=== PATIENT | female | born 1975 | race Caucasian/White ===

== ENCOUNTER 2019-01-18 08:14 | Emergency (ER) | payer BC, SELFPAY ==
[2019-01-18 08:15] VITALS: BP 155/74; PULSE 75; RESP 18; TEMP 36.3; O2SAT 95; BMI 37.5
--- NOTE | 2019-01-18 08:24 | ED.VIS.GEN ---
History of Present Illness Chief Complaint: Nausea/Vomiting/Diarrhea Detail of Chief Complaint: Nausea without vomiting and diarrhea Informant: Patient Onset: Days - Onset January 13. Context: Sudden Onset Timing: Continuous - Nausea, Intermittent - Diarrhea Quality: Watery diarrhea 5 times per day Location: GI Current Severity: Moderate Maximum Severity: Moderate Worsened by: Playing tennis outdoors this past Relieved by: Nothing Associated Symptoms: Headache, thirst, lightheadedness Narrative: Patient is a 43-year-old woman with no sniffing a past medical history who presents with nausea and diarrhea that started Friday. Son was ill prior with diarrhea. She denies fever or chills. She denies history of pseudomembranous colitis, diverticulitis or inflammatory bowel disorder. She denies blood or mucus in her stool. She feels worn out. Patient states she played tennis this past weekend. She believes she drank enough fluids. She presents because she is concerned she is dehydrated does not feel well. Prior similar symptoms: No Recent Illness/Hospitalization: No - Past Medical History (1) No significant past medical history Status: Acute Past Medical History - Allergies and Home Meds Allergies/Adverse Reactions: Allergies codeine Allergy (Verified 01/18/19 08:15) Rash Primary Care Physician: Care Physician,No Primary [Primary Care Provider] - Prior records reviewed: Yes Past Medical History: None Surgical History: noncontributory Lives: With Family Smoking Status: Never smoker Alcohol: None Drugs: None Review of Systems General: Denies: Chills, Fever, Sweats Eyes: Denies: Visual changes - bilaterally, Diplopia ENT: Denies: Rhinorrhea, Sore throat Cardiovascular: Denies: Chest pain, Palpitations Respiratory: Denies: Dyspnea, Cough, Dyspnea on exertion Gastrointestinal: Reports: Abdominal pain, Nausea, Diarrhea. Denies: Vomiting, Constipation, Melena, Hematochezia, -, - Genitourinary: Reports: Frequency. Denies: Dysuria, Hematuria, -, - Musculoskeletal: Reports: Myalgias, Arthralgias. Denies: Neck pain, Back pain, Swelling, Extremity Pain, -, - Skin: Denies: Rash, Wounds Neurological: Reports: Headache, Weakness. Denies: Parasthesia, Numbness Endocrine: Reports: Polyuria. Denies: Polydipsia, Heat intolerance Hematologic: Denies: Easy bruising, Easy bleeding Allergy: Denies: Uticaria, Swelling of the mouth Physical Exam Vital Signs/Narrative: Vital Signs Temp Pulse Resp BP Pulse Ox 01/18/19 08:15 97.4 F L 75 18 155/74 H 95 Inital Vital Signs reviewed: Yes General: Well nourished, Well developed, No Acute Distress Head: Normocephalic, Atraumatic Eyes: Perrl, EOMI. Negative for: Pale conjunctiva, Scleral icterus ENT: No rhinorrhea, TM's clear, Dry mucous membranes Neck: Supple, Nontender, No lymphadenopathy, No JVD, - Cardiovascular: Regular rate, Regular rhythm, No murmurs, Normal S1, Normal S2 Respiratory: No distress, CTA bilaterally, Chest nontender Abdomen: Soft, Nontender, Nondistended, Normal bowel sounds, No masses Rectal: Deferred Back: Nontender, Normal Inspection Extremities: Nontender Skin: Normal color, No rash, No Trauma. Negative for: Cyanosis, Diaphoresis, Jaundice Neurological: Alert, Oriented x3, Cranial nerves II-XII grossly intact, Normal Strength, Normal Sensation Psychological: Normal affect Diagnostic/Tx/Re-eval Laboratory Results 01/18/19 08:30 Sodium 137 Potassium 3.8 Chloride 106 Carbon Dioxide 26.0 Anion Gap 5 BUN 9 Creatinine 0.92 Estim Creat Clear Calc 76.67 Est GFR (MDRD) Af Amer 85 Est GFR (MDRD) Non-Af 70 BUN/Creatinine Ratio 9.7 L Glucose 91 Calcium 8.0 L Electrolytes are unremarkable. Renal function is unremarkable. Potassium is normal. - Medical Decision Making Patient complains of thirst and dry mouth and orthostatic symptoms. Clinically she appears dehydrated. Patient reports frequency which raises concern for hyperglycemia. There is no family history of diabetes. Basic medical panel was obtained to assess glucose, renal function and electrolytes specifically potassium. She will receive 1 L of normal saline wide open and because her most significant symptom presently is nausea she received 4 mg Zofran IV push. Will reassess patient in 60 minutes. PO challenge was ordered. Patient complained of nausea. P.o. challenge was postponed. She received 10 mg of Reglan. Was informed she had a dystonic reaction, akathisia. This resolved with 1 mg of Cogentin IV push. She was reassessed at 1050. She states her nausea is resolved and her akathisia is resolved. Nurse was informed to p.o. challenge patient. I was informed at 1059 that patient passed p.o. challenge. She will be discharged home with antiemetic and instructed to take Imodium for diarrhea. ED Disposition - Plan for ED Patient: Disposition: Home or Assisted Living Diagnosis: Diarrhea, Nausea alone, Mild dehydration Instructions: VOMITING AND DIARRHEA, Nonspecific (Adult) Prescriptions: Ondansetron [Zofran Odt] 4 mg PO Q8H PRN PRN #10 tab PRN Reason: Nausea Prescription Printed Referrals: Care Physician,No Primary [Primary Care Provider] - Gume Jarvis MD [STAFF PHYSICIAN] - As Needed Additional Instructions: Since you do not have a primary care physician you were assigned to Dr. Gume Jarvis who is on-call for no doc.
[2019-01-18] MEDS: Ondansetron 4 MG/2 ML Vial IV (08:30)
[2019-01-18] MEDS: 0.9% Normal Saline 1,000 ML 1000 ML IV (08:30)
[2019-01-18 08:47] LABS: Anion Gap 5 (5-15); BUN 9 mg/dL (7-18); BUN/Creat Ratio 9.7 RATIO (10-20); Chloride 106 mmol/L (98-107); Creatinine, Serum 0.92 mg/dL (0.55-1.02); EST Glomerular Filtration Rate 70 mL/min (>60); Est Glom Filt Rate - Afr Amer 85 mL/min (>60); Estimated Creatinine Clearance 76.67 ml/min; Glucose 91 mg/dL (74-106); Potassium 3.8 mmol/L (3.5-5.1); Sodium Level 137 mmol/L (136-145)
[2019-01-18] MEDS: Metoclopramide 10 MG/2 ML Vial IV (10:00)
[2019-01-18 10:14] VITALS: BP 136/10; PULSE 69; RESP 16; O2SAT 95
== END 2019-01-18 11:12 | disposition home or self-care (01) ==
PROVIDERS: Emergency Provider Emergency Medicine
DX: R19.7 Diarrhea, unspecified (principal); R11.0 Nausea; E86.0 Dehydration; R10.9 Unspecified abdominal pain; R35.0 Frequency of micturition
CPT/HCPCS: 80048; 96361; 96374; 96375; 99283; J7030; A4216; J2405

== ENCOUNTER → 2019-02-18 17:12 | Outpatient (CLI) | payer BC, SELFPAY ==
[2019-02-18 20:53] LABS: Chlamydia Trachomatis by PCR Negative (Negative); Neisserai gonorrhoeae by PCR Negative (Negative); Probe Check PASS; Sample Adequacy Control PASS; Specimen Processing Control PASS
[2019-03-09 15:42] LABS: HPV Reflexed? NOT INDICATED
== END ==
PROVIDERS: Visit Provider Obstetrics & Gynecology
DX: Z12.4 Encounter for screening for malignant neoplasm of cervix (principal); Z11.3 Encounter for screening for infections with a predominantly sexual mode of transmission
CPT/HCPCS: 87491; 87591; 87624; 88175; G0145

== ENCOUNTER → 2019-02-25 15:38 | Outpatient (CLI) | payer BC, SELFPAY ==
--- NOTE | 2019-02-25 15:41 | BI_ITS ---
MAMMOGRAPHY - BILATERAL SCREENING REASON FOR EXAM: Female, 43 years old. Routine annual screening examination. PERTINENT HISTORY: Non-contributory. TECHNIQUE: Digital bilateral breast barbara (3D mammographic acquisition) in the CC and MLO projections. 2-D mediolateral oblique (MLO) and craniocaudad (CC) views of both breasts were obtained. CAD: Full Field Digital Mammography with Computer Added Detection was performed. COMPARISON: Comparison is made with prior study dated October 04, 2016 and March 14, 2010. FINDINGS: Breast Composition: The breasts are heterogeneously dense, which may obscure small masses. There are no dominant masses or suspicious calcifications. No other significant abnormalities are identified. There has been no significant change since the prior study. BI/SCREENING MAMM (CAD), BILAT IMPRESSION: Stable bilateral screening mammogram. Yearly follow-up mammogram recommended. (A) ASSESSMENT CATEGORY: BIRADS Category 1: Negative. A letter regarding these results will be sent to the patient by the facility within 30 days. Approximately 10% of breast cancers are not detected by mammography. A normal mammogram should not delay biopsy of a clinically suspicious abnormality. [id number] Electronically Signed: Dylan Nguyen, at 8:41 EDT , Service support ,
== END ==
PROVIDERS: Referring Provider Obstetrics & Gynecology; Visit Provider Obstetrics & Gynecology
DX: Z12.31 Encounter for screening mammogram for malignant neoplasm of breast (principal)
CPT/HCPCS: 77067

== ENCOUNTER 2019-03-22 07:54 | Emergency (ER) | payer BC, SELFPAY ==
[2019-03-22 07:56] VITALS: BP 169/90; PULSE 74; RESP 16; TEMP 36.7; O2SAT 97; BMI 39.2
--- NOTE | 2019-03-22 08:12 | ED.DCSUM_ITS ---
- ER Visit Summary Date of Service: 03/22/19 Chief Complaint: Left hand swelling and wheezing posterior horn extending History of Present Illness: The patient is a 44 F no significant past medical history. Patient was working outside yesterday and was stung by hornets on the dorsum of her left hand. She also had wheezing at that time. Bought some Benadryl and the wheezing resolved. But now has a swollen hand. No prior history. No trouble swallowing or breathing. Physical Examination: Well-appearing middle-aged female. Vital signs are stable and afebrile. She is in no distress. H EENT exam unremarkable. No swelling or trouble breathing. Posterior pharynx normal. No stridor. No drooling. Neck nontender. No lymphadenopathy. Lungs clear to auscultation bilaterally. Heart regular rate and rhythm no murmur. Abdomen is soft and nontender. Patient is moving all 4 extremities. Neurovascularly intact. Left hand is swollen consistent with a localized allergic reaction. This stinger is not present. Patient has swelling to the left hand dorsum primarily in distal left forearm. And is neurovascularly intact. There is no cellulitis. Test Results: None Emergency Department Course and Treatment: Patient has a localized allergic reaction to her left hand and forearm. It sounds like she started having a generalized reaction with the wheezing. She will be written for an EpiPen. She will continue to ice and elevate the left hand. Motrin for pain and swelling. Continue Benadryl. Treatment Plan: EpiPen to have swelling in case of a more severe reaction. Benadryl. Ice and elevate. Disposition: dc Impression: Localized allergic reaction to left hand secondary to hornet sting This note was generated with [employer] dictation software. It may contain incorrect words, spelling, and punctuation that were not noted in review of the chart prior to signing ED Disposition - Plan for ED Patient: Referrals: Care Physician,No Primary [Primary Care Provider] -
--- NOTE | 2019-03-22 08:15 | DCINST.ED_ITS ---
ED Disposition - Plan for ED Patient: Disposition: Home or Assisted Living Instructions: ALLERGIC REACTION, Insect (General) Prescriptions: Prednisone [Deltasone] 40 mg PO DAILY 7 Days tab Prescription Printed Epi Pen (for allergic rxn) 0.3 mg IM X1 #1 syringe Prescription Printed Referrals: Giorgi Wilson MD [STAFF PHYSICIAN] - As Needed Additional Instructions: Left hand to decrease the swelling. This will take several days for the swelling to go down. Benadryl as needed for itching and swelling. Motrin for pain and swelling. I wrote her a prescription for an EpiPen in case you have a severe reaction w here you have severe wheezing or throat or tongue or lip swelling after a bee sting. Prednisone also for allergic reactions.
[2019-03-22 08:33] VITALS: BP 123/74; PULSE 84; RESP 18
[2019-03-22 08:36] VITALS: BP 123/74; PULSE 84; RESP 18
== END 2019-03-22 08:43 | disposition home or self-care (01) ==
LOC: ED 08:22
PROVIDERS: Emergency Provider Emergency Medicine
DX: T63.451A Toxic effect of venom of hornets, accidental (unintentional), initial encounter (principal); M79.89 Other specified soft tissue disorders; Y92.9 Unspecified place or not applicable
CPT/HCPCS: 99282

== ENCOUNTER → 2020-06-08 15:02 | Outpatient (CLI) | payer BC, SELFPAY ==
--- NOTE | 2020-06-08 15:06 | BI_ITS ---
MAMMOGRAPHY - BILATERAL SCREENING REASON FOR EXAM: Female, 45 years old. Routine annual screening examination. PERTINENT HISTORY: Non-contributory. TECHNIQUE: Digital bilateral breast levon (3D mammographic acquisition) in the CC and MLO projections. 2-D mediolateral oblique (MLO) and craniocaudad (CC) views of both breasts were obtained. CAD: Full Field Digital Mammography with Computer Added Detection was performed. COMPARISON: Comparison is made with prior study 02/25/2019 and 10/04/2016. FINDINGS: Breast Composition: The breasts are heterogeneously dense, which may obscure small masses. There are no dominant masses or suspicious calcifications. No other significant abnormalities are identified. There has been no significant change since the prior study. BI/SCREEN MAMM (CAD) W/LEVON BILAT IMPRESSION: Stable bilateral screening mammogram. Yearly follow-up mammogram recommended. (A) ASSESSMENT CATEGORY: BIRADS Category 1: Negative. A letter regarding these results will be sent to the patient by the facility within 30 days. Approximately 10% of breast cancers are not detected by mammography. A normal mammogram should not delay biopsy of a clinically suspicious abnormality. [id number] Electronically Signed: Dylan Nguyen, at 15:58 EST , Service support ,
== END ==
PROVIDERS: Referring Provider Obstetrics & Gynecology; Visit Provider Obstetrics & Gynecology
DX: Z12.31 Encounter for screening mammogram for malignant neoplasm of breast (principal)
CPT/HCPCS: 77063; 77067

== ENCOUNTER 2021-05-28 02:01 | Emergency (ER) | payer BC, SELFPAY ==
[2021-05-28 02:02] VITALS: BP 153/81; PULSE 85; RESP 18; TEMP 36.9; O2SAT 95; BMI 41.0
[2021-05-28 02:04] VITALS: BP 153/81; PULSE 85; RESP 18; TEMP 36.9; O2SAT 95
--- NOTE | 2021-05-28 02:16 | EX.ED.VIS.UR ---
HPI HPI - URI History of Present Illness Chief Complaint: Shortness of Breath Informant: patient Onset/Context/Timing Onset: Days (7) Context: Gradual Onset Timing: Continuous Quality: [employer] cough Current Severity: Moderate Maximum Severity: Moderate Worsened by: - (coughing) Relieved by: - (nothing) Associated Symptoms Associated Symptoms: Positive for Headache, Myalgias, Nausea, Diarrhea, Shortness of Breath (when can't stop coughing) and Nonproductive cough; Negative for Nasal Congestion, Sinus Pressure, Vomiting, Chest Pain and Hemoptysis Narrative Narrative: Patient has been gradually becoming more ill for the past week, fevers, chills, myalgias, coughing, now feeling a little short of breath mostly because she is coughing more and having some episodes of bronchospasm from what she describes. She has been malaise, having headaches, nausea and diarrhea. Eating and drinking less because of the nausea mostly. Unvaccinated against Covid. She thinks that she thought she had Covid 2 years ago [place] which would be right before the pandemic started, when there were no confirmed cases in [place], she states she has never had any antibody testing to see if she had it or not. She is against Covid vaccination because I am against . ROS ROS ED Constitutional Constitutional ED: Reports body ache(s), chills, fatigue, fever(s), headache(s) and malaise Eyes Eyes: Denies change in vision or diplopia ENT ENT ED: Denies rhinorrhea or sore throat Cardiovascular Cardiovascular: Denies chest pain or palpitations Respiratory/Chest Respiratory/Chest: Reports as per HPI, cough and dyspnea Gastrointestinal Gastrointestinal: Reports diarrhea and nausea; Denies abdominal pain or vomiting Genitourinary Genitourinary ED: Denies dysuria or hematuria Musculoskeletal Musculoskeletal: Denies back pain or neck pain Integumentary Denies abscess or rash Neurologic Neurologic: Reports headache(s); Denies paresthesias or weakness Psychiatric Psychiatric: Denies anxiety or suicidal thoughts [facility] Medical History delivery delivered Home Medications norgestimate-ethinyl estradiol 1 tab PO DAILY 01/18/19 [History Last Taken Unknown] ascorbate [id number] 1 tab PO DAILY 05/28/21 [History Last Taken Unknown] ascorbic acid (vitamin C) [Vitamin C] 500 mg PO DAILY 05/28/21 [History Last Taken Unknown] cholecalciferol (vitamin D3) [Vitamin D3] 50 mcg PO DAILY 05/28/21 [History Last Taken Unknown] ondansetron 8 mg PO Q8H PRN PRN #12 tab 05/28/21 [Rx Last Taken Unknown] Allergy/AdvReac Type Severity Reaction Status Date / Time codeine Allergy Rash Verified 03/22/19 07:55 Surgical History H/O laminectomy Hx of tonsillectomy Social History Smoking Status: Never smoker EXAM Physical Exam Const Vital Signs: 05/28/21 02:02 05/28/21 02:04 Temperature 98.4 F 98.4 F Temperature Source Temporal Temporal Pulse Rate 85 85 Respiratory Rate 18 18 Blood Pressure 153/81 H 153/81 H Blood Pressure Mean 105 105 Pulse Ox 95 95 Oxygen Delivery Method Room Air Room Air Positive well nourished and well developed Constitutional Narrative: Malaised-appearing, no distress General Appearance ED: well developed and NAD HEENT Reports moist mucous membranes normocephalic and atraumatic Eyes PERRL and EOMs intact bilaterally Neck full ROM and supple Resp normal respiratory effort and clear to auscultation bilaterally Cardio regular rate, regular rhythm and no murmurs Rate: Negative for tachycardic GI non-tender and non-distended Auscultation: normoactive bowel sounds Palpation: soft Back/Spine no CVA tenderness General Back: other FROM Extremity normal to inspection and no calf tenderness General Extremety ED: Negative for edema, pulses abnormal or tenderness General Extremity: Negative for edema or pulses abnormal Neuro oriented x3, CN's II-XII intact bilaterally and no sensory deficits noted Sensorium / Orientation: awake and alert Motor Exam: strength 5/5 throughout Skin no rashes or lesions noted and no wounds MDM MDM MDM Narrative Medical decision making narrative: Rapid Covid is positive as expected since the patient has classic symptoms. She is clinically well. Her oxygenation is excellent. Given her BMI of 41 she meets criteria for monoclonal antibody infusion therapy, she was counseled on this and is interested in it. Order was placed and she was referred to the clinic and given appropriate discharge instructions. Discharge Plan Triage Chief Complaint: Shortness of Breath ED Provider: Michael Lion Dx/Rx/DC Orders Clinical Impression: COVID-19 Instructions: Coronavirus Disease 2019 (COVID-19): Caring for Yourself or Others, ED - COVID Monoclonal AB Infusion ... Prescriptions: New ondansetron [ondansetron] 4 MG tablet 8 mg PO Q8H PRN PRN (Reason: Nausea) Qty: 12 RF: 0 No Action norgestimate-ethinyl estradiol 0 tablet 1 tab PO DAILY RF: 0 ascorbic acid (vitamin C) [Vitamin C] 500 mg Capsule, Extended Release 500 mg PO DAILY RF: 0 cholecalciferol (vitamin D3) [Vitamin D3] 50 mcg (2,000 unit) Tablet 50 mcg PO DAILY RF: 0 ascorbate [id number] 100-100-50 mg Tablet 1 tab PO DAILY RF: 0 Primary Care Provider: Care Physician,No Primary Referrals: Care Physician,No Primary [Primary Care Provider] - Activity Restrictions/Additional Instructions: Try to get a home portable pulse oximeter and closely watch your oxygen levels periodically. If you stay below 90% for more than a minute or so, and/or you are feeling like your breathing is getting worse, return to the emergency department for further evaluation. You are a candidate for monoclonal antibody infusion therapy, see the attached instructions for more information. They will call you concerning when they want you to come to the clinic to get the infusion which is a one-time dose to help protect you from getting more ill and becoming hospitalized with life-threatening illness due to Covid given your risk for worsening. Disposition Disposition: Home, Self Care
[2021-05-28] MEDS: Ondansetron ODT 4 MG Tablet 8 MG PO (02:22)
[2021-05-28] MEDS: Ketorolac 60 MG/2 ML Vial IM (02:27)
[2021-05-28 02:55] VITALS: BP 146/80; PULSE 89; RESP 18; O2SAT 93
== END 2021-05-28 02:56 | disposition home or self-care (01) ==
PROVIDERS: Emergency Provider Emergency Medicine
DX: U07.1 COVID-19 (principal)
CPT/HCPCS: 87426; 99283

== ENCOUNTER 2021-05-29 22:11 | Inpatient (IN) | payer BC, SELFPAY ==
[2021-05-29 22:14] VITALS: BP 113/71; PULSE 98; RESP 20; TEMP 38.4; O2SAT 95; BMI 39.1
[2021-05-29 23:04] VITALS: O2SAT 96
[2021-05-29 23:06] VITALS: O2SAT 96
[2021-05-30] VITALS (8 sets, daily range): BP systolic 122–138; BP diastolic 77–92; PULSE 74–82; RESP 18–24; TEMP 36.3–37; O2SAT 92–97; BMI 39.4
--- NOTE | 2021-05-30 00:25 | RAD_ITS ---
EXAM: XR CHEST, 1 VIEW CLINICAL INDICATION: SOB, COVID TECHNIQUE: Frontal view of the chest. This report was created using [employer] report generation technology. COMPARISON: Same-day chest x-ray performed at 12:17 a.m. FINDINGS: LUNGS AND PLEURAL SPACES: Low lung volumes. Bilateral multilobar pneumonia as before. No pneumothorax. No effusion. HEART: Unremarkable. Cardiac silhouette not enlarged. MEDIASTINUM: Central airways and mediastinal contour are unremarkable. BONES/JOINTS: Unremarkable. SOFT TISSUES: Unremarkable. OTHER FINDINGS: No other significant short interval changes. RAD/Chest 1 View (Portable) IMPRESSION: Bilateral multilobar pneumonia is unchanged. Electronically Signed: Nickolas Drake MD at 0:55 EST Tel , Service support ,
--- NOTE | 2021-05-30 00:36 | EKG12_ITS ---
Test Reason : DYSRHYTHMIA Blood Pressure : / mmHG Vent. Rate : 084 BPM Atrial Rate : 084 BPM P-R Int : 162 ms QRS Dur : 068 ms QT Int : 356 ms P-R-T Axes : 013 003 024 degrees QTc Int : 420 ms Normal sinus rhythm Normal ECG Confirmed by CLAUDIO SABA, LARISSA ([id number]), electronic news gathering editor MAINOR SIDHU ([id number]) on 06/05/2021 10:01:58 AM Referred By: BB Confirmed By:LARISSA SNYDER MD
--- NOTE | 2021-05-30 00:37 | ED.VIS.DYS ---
HPI History of Present Illness Chief Complaint: Shortness of Breath Informant: patient Associated Symptoms cough Chest Pain: Positive for None Narrative Narrative: Patient has Covid now for 9 days, she has been getting worse with regards to feeling malaised and dyspneic. She was seen here 2 days ago where she was diagnosed and sent for monoclonal antibody infusion therapy, however she got worse and dropped her pulse ox and went to an outpatient RN practitioner yesterday who set her up with oxygen at home and had her doing some type of steroid aerosol according to the patient. She was not prescribed dexamethasone, nor prednisone. When she received a call about the monoclonal antibody infusion therapy, she was already on oxygen and therefore no longer a candidate. Now she states she is feeling worse and dropping her pulse ox. Patient is unvaccinated. [facility] Medical History delivery delivered Home Medications norgestimate-ethinyl estradiol 1 tab PO DAILY 01/18/19 [History Last Taken Unknown] ascorbate [id number] 1 tab PO DAILY 05/28/21 [History Last Taken Unknown] ascorbic acid (vitamin C) [Vitamin C] 500 mg PO DAILY 05/28/21 [History Last Taken Unknown] cholecalciferol (vitamin D3) [Vitamin D3] 50 mcg PO DAILY 05/28/21 [History Last Taken Unknown] ondansetron 8 mg PO Q8H PRN PRN #12 tab 05/28/21 [Rx Last Taken Unknown] ivermectin mg PO 05/29/21 [History Last Taken Unknown] Allergy/AdvReac Type Severity Reaction Status Date / Time codeine Allergy Rash Verified 03/22/19 07:55 Surgical History H/O laminectomy Hx of tonsillectomy Social History Smoking Status: Never smoker ROS ROS ED Constitutional Constitutional ED: Reports body ache(s), chills, fatigue, fever(s), headache(s) and malaise Eyes Eyes: Denies change in vision or diplopia ENT ENT ED: Denies rhinorrhea or sore throat Cardiovascular Cardiovascular: Denies chest pain or palpitations Respiratory/Chest Respiratory/Chest: Reports cough, dyspnea and dyspnea on exertion Gastrointestinal Gastrointestinal: Reports diarrhea; Denies abdominal pain, nausea or vomiting Genitourinary Genitourinary ED: Denies dysuria or hematuria Musculoskeletal Musculoskeletal: Denies back pain, myalgias or neck pain Integumentary Denies abscess or rash Neurologic Neurologic: Reports headache(s); Denies paresthesias or weakness Psychiatric Psychiatric: Denies anxiety or suicidal thoughts EXAM Physical Exam Const Vital Signs: 05/29/21 22:14 05/29/21 23:04 05/29/21 23:06 Temperature 101.1 F H Temperature Source Temporal Pulse Rate 98 Respiratory Rate 20 H Respiratory Effort Short of Breath Respiratory Depth Normal Respiratory Pattern Tachypnea Blood Pressure 113/71 Blood Pressure Mean 85 Pulse Ox 95 96 Oxygen Delivery Method Nasal Cannula Nasal Cannula Nasal Cannula Oxygen Flow Rate (L/min) 4 4 4 05/30/21 00:56 Temperature Temperature Source Pulse Rate Respiratory Rate Respiratory Effort Respiratory Depth Respiratory Pattern Blood Pressure Blood Pressure Mean Pulse Ox 97 Oxygen Delivery Method Nasal Cannula Oxygen Flow Rate (L/min) 4 Positive well nourished and well developed Constitutional Narrative: Malaised-appearing, no distress. Tachypnea, no respiratory distress General Appearance ED: well developed and NAD HEENT Reports moist mucous membranes normocephalic and atraumatic Eyes PERRL and EOMs intact bilaterally Neck full ROM and supple Resp normal respiratory effort and clear to auscultation bilaterally Cardio regular rate, regular rhythm and no murmurs Rate: Negative for tachycardic GI non-tender and non-distended Auscultation: normoactive bowel sounds Palpation: soft Back/Spine no CVA tenderness General Back: other FROM Extremity normal to inspection and no calf tenderness General Extremety ED: Negative for edema, pulses abnormal or tenderness General Extremity: Negative for edema or pulses abnormal Neuro oriented x3, CN's II-XII intact bilaterally and no sensory deficits noted Sensorium / Orientation: awake and alert Motor Exam: strength 5/5 throughout Skin no rashes or lesions noted and no wounds MDM MDM MDM Narrative Medical decision making narrative: Patient is breathing adequately with a nasal cannula turned up to 5 L, keeping her in the mid 90s. She is requiring that. We treated fever, D-dimer was elevated so CT angiography was performed and showed no pulmonary embolus but she does have bilateral pneumonitis. Will admit. Lab Data Attestation: I reviewed the patient's lab results. Labs: Laboratory Results - last 24 hr 05/30/21 05/30/21 05/30/21 00:50 00:50 00:50 WBC 5.1 RBC 4.81 Hgb 14.2 Hct 42.6 MCV 88.6 MCH 29.5 MCHC 33.3 RDW Std Deviation 41.0 RDW Coeff of Dante 12.5 Plt Count 240 MPV 9.5 Immature Gran % (Auto) 0.400 Neut % (Auto) 78.5 H Lymph % (Auto) 13.4 L [place] % (Auto) 7.5 Eos % (Auto) 0.0 Baso % (Auto) 0.2 Absolute Neuts (auto) 4.0 Absolute Lymphs (auto) 0.68 L Nucleated RBC % 0 D-Dimer Quant (PE/DVT) 0.69 H* Sodium 134 L Potassium 3.9 Chloride 100 Carbon Dioxide 26.0 Anion Gap 8 BUN 7 Creatinine 0.97 Estim Creat Clear Calc 70.47 Est GFR (MDRD) Af Amer 80 Est GFR (MDRD) Non-Af 66 BUN/Creatinine Ratio 7.2 L Glucose 120 H Lactic Acid Calcium 8.2 L Total Bilirubin 0.50 AST 50 H ALT 44 Alkaline Phosphatase 63 Troponin I High Sens 34 Total Protein 7.1 Albumin 3.0 L Globulin 4.1 Albumin/Globulin Ratio 0.7 L 05/30/21 00:50 WBC RBC Hgb Hct MCV MCH MCHC RDW Std Deviation RDW Coeff of Dante Plt Count MPV Immature Gran % (Auto) Neut % (Auto) Lymph % (Auto) [place] % (Auto) Eos % (Auto) Baso % (Auto) Absolute Neuts (auto) Absolute Lymphs (auto) Nucleated RBC % D-Dimer Quant (PE/DVT) Sodium Potassium Chloride Carbon Dioxide Anion Gap BUN Creatinine Estim Creat Clear Calc Est GFR (MDRD) Af Amer Est GFR (MDRD) Non-Af BUN/Creatinine Ratio Glucose Lactic Acid 0.8 Calcium Total Bilirubin AST ALT Alkaline Phosphatase Troponin I High Sens Total Protein Albumin Globulin Albumin/Globulin Ratio Radiography Diagnostic Testing: Clinical Impression(s) from Imaging Studies Chest X-Ray 05/30/21 00:25 IMPRESSION: Bilateral multilobar pneumonia is unchanged. Electronically Signed: Nickolas Darke MD at 0:55 EST Tel , Service support , Chest CTA 05/30/21 01:38 IMPRESSION: 1. Bilateral pneumonia. 2. No PE. Electronically Signed: Nickolas Drake MD at 2:42 EST Tel , Service support , Discharge Plan Triage Chief Complaint: Shortness of Breath ED Provider: Michael Lion Dx/Rx/DC Orders Clinical Impression: Pneumonia due to COVID-19 virus, Hypoxemia Prescriptions: No Action norgestimate-ethinyl estradiol 0 tablet 1 tab PO DAILY RF: 0 ascorbic acid (vitamin C) [Vitamin C] 500 mg Capsule, Extended Release 500 mg PO DAILY RF: 0 cholecalciferol (vitamin D3) [Vitamin D3] 50 mcg (2,000 unit) Tablet 50 mcg PO DAILY RF: 0 ascorbate [id number] 100-100-50 mg Tablet 1 tab PO DAILY RF: 0 ondansetron [ondansetron] 4 MG tablet 8 mg PO Q8H PRN PRN (Reason: Nausea) Qty: 12 RF: 0 ivermectin 6 mg Tablet PO RF: 0 Primary Care Provider: Care Physician,No Primary Referrals: Care Physician,No Primary [Primary Care Provider] - Disposition Disposition: Acute Care [facility]
[2021-05-30] MEDS: 0.9% Normal Saline 1,000 ML 999 ML IV (00:53)
[2021-05-30] MEDS: Acetaminophen 500 MG Tablet 1000 MG PO (00:54)
[2021-05-30] MEDS: dexAMETHasone 10 MG/ML Vial 6 MG IV (00:55)
[2021-05-30 01:10] LABS: Absolute Lymphocyte Count 0.68 X10^3/uL (0.83-4.51); Basophil# 0.01 X10^3/uL; Basophil% 0.2 % (0-1); Hematocrit 42.6 % (37-47); Hemoglobin 14.2 g/dL (12.0-15.0); Lymphocyte # 0.68 X10^3/ul (0.83-4.51); Lymphocyte % 13.4 % (19-41); Mean Corp Hgb Conc 33.3 g/dL (32-36); Mean Corpuscular Hgb 29.5 pg (27.0-32.0); Mean Corpuscular Volume 88.6 fL (81-99); Mean Platelet Vol. 9.5 fl (6.2-12.0); Monocyte# 0.38 X10^3/uL; Monocyte% 7.5 % (0-10); NRBC Flagged by Analyzer 0 % (0-5); Neutrophil % 78.5 % (47-70); Platelet Count 240 K/mm3 (150-450); RBC Distribution Width CV 12.5 % (11.6-14.6); Red Blood Count 4.81 M/mm3 (4.2-5.4); White Blood Count 5.1 K/mm3 (4.4-11.0)
[2021-05-30 01:30] LABS: Lactic Acid 0.8 mmol/L (0.4-1.9)
[2021-05-30 01:34] LABS: D-Dimer Quantitative (DVT/PE) 0.69 FEU/ug/m (0.27-0.49)
--- NOTE | 2021-05-30 01:38 | CT_ITS ---
EXAM: CT ANGIOGRAPHY CHEST WITHOUT AND WITH INTRAVENOUS CONTRAST CLINICAL INDICATION: elevated d-dimer, chest pain -- covid + TECHNIQUE: Helically acquired angiography images were obtained of the chest without and with intravenous contrast. CTDIvol = ( 22.16 ) mGy, DLP = ( 473.26 ) mGycm This CT exam was performed using one or more of the following dose reduction techniques: automated exposure control, adjustment of the mA and/or kV according to patient size, and/or use of iterative reconstruction technique. This report was created using wufoo report generation technology. MIP reconstructed images were created and reviewed. CONTRAST: IV 100mL Isovue-370 COMPARISON: None. FINDINGS: PULMONARY ARTERIES: No PE. Normal in caliber. No evidence of pulmonary embolism. AORTA: Unremarkable. Normal in caliber. No evidence of dissection. GREAT VESSELS OF AORTIC ARCH: Unremarkable. Normal in caliber. No evidence of dissection. LUNGS AND PLEURAL SPACES: Bilateral multilobar pneumonia. No mass. No pleural effusion or thickening. HEART: Unremarkable. Heart size is normal. No pericardial effusion. No signs of right heart strain, ratio of right ventricle to left ventricle measures less than 1. MEDIASTINUM: Small probably reactive mediastinal and hilar lymph nodes. Esophagus is unremarkable. No hiatal hernia. THYROID: Unremarkable. No thyroid lesions. BONES/JOINTS: Degenerative disease of the spine. No suspicious lytic or sclerotic lesions of bone. CT/CTA Chest W/WO Contrast IMPRESSION: 1. Bilateral pneumonia. 2. No PE. Electronically Signed: Nickolas Drake MD at 2:42 EST Tel , Service support ,
[2021-05-30 01:41] LABS: ALB/GLOB Ratio 0.7 RATIO (0.9-2.4); AST(SGOT) 50 U/L (15-37); Alanine Aminotransfer ALT/SGPT 44 U/L (13-56); Alkaline Phosphatase 63 U/L (45-117); Anion Gap 8 (5-15); BUN 7 mg/dL (7-18); BUN/Creat Ratio 7.2 RATIO (10-20); Calcium,Total 8.2 mg/dL (8.5-10.1); Chloride 100 mmol/L (98-107); Creatinine, Serum 0.97 mg/dL (0.55-1.02); EST Glomerular Filtration Rate 66 mL/min (>60); Est Glom Filt Rate - Afr Amer 80 mL/min (>60); Estimated Creatinine Clearance 70.47 ml/min; Globulin 4.1 g/dL (2.2-4.2); Glucose 120 mg/dL (74-106); Potassium 3.9 mmol/L (3.5-5.1); Protein, Total 7.1 g/dL (6.4-8.2); Sodium Level 134 mmol/L (136-145); Troponin-I HS 34 pg/mL (3.0-54.0)
--- NOTE | 2021-05-30 04:15 | PCM.HP.STD ---
HPI - General General Date of Admission: 05/30/21 Date of Service: 05/30/21 Chief Complaint: Shortness of breath/hypoxia HPI Narrative DANIELA LIAO, is a 46 F who presented to the emergency department [facility] on 05/29/2021 secondary to shortness of breath. The patient was seen here 2 days prior and was diagnosed with COVID-19 at that time. She has had symptoms for 9 days that have included some nausea, shortness of breath, progressively worsening hypoxia, diarrhea, malaise, and anosmia. After being seen here she was discharged home on room air and referred for monoclonal antibody infusion however approximately 24 hours after being seen she became hypoxic and went to an outpatient nurse practitioner who set her up with home oxygen. She was not placed on Decadron at that time however, she is taking ivermectin. She unfortunately was not a candidate for monoclonal antibody infusion when they called as she was already placed on oxygen. She presented this evening because she was feeling worse and her pulse ox was dropping further. When she was evaluated by the outpatient [employer] she was found to have an oxygen saturation of 80% on room air and was set up with home oxygen at that time. The patient is unvaccinated. We discussed treatment option and she is resistant to utilizing remdesivir but is excepting of Decadron at this time. As noted above she was hypoxic in the 80s on room air she is however stable on 5-1/2 L nasal cannula with oxygen saturations at 97%. She was febrile upon presentation with a T-max of 101.1. Her heart rate is stable and her blood pressure is normal. Her CBC is overall unremarkable however she does have a mild left shift. Her D-dimer was elevated at 0.69 and therefore a CTA of her chest was performed. This was negative for pulmonary embolus but did show bilateral pneumonia consistent with acute viral pneumonia. Her CMP shows mild hyponatremia with a sodium of 134. She has a normal lactic acid at 0.8. Her AST was mildly elevated at 50. High-sensitivity troponin was obtained and was 34. Her EKG is unremarkable with no ST-T wave changes. She was treated in the emergency department with Decadron and request for admission was made. [facility] Medical History delivery delivered Home Medications norgestimate-ethinyl estradiol 1 tab PO DAILY 01/18/19 [History Last Taken Unknown] ascorbate [id number] 1 tab PO DAILY 05/28/21 [History Last Taken Unknown] ascorbic acid (vitamin C) [Vitamin C] 500 mg PO DAILY 05/28/21 [History Last Taken Unknown] cholecalciferol (vitamin D3) [Vitamin D3] 50 mcg PO DAILY 05/28/21 [History Last Taken Unknown] ondansetron 8 mg PO Q8H PRN PRN #12 tab 05/28/21 [Rx Last Taken Unknown] ivermectin mg PO 05/29/21 [History Last Taken Unknown] Allergy/AdvReac Type Severity Reaction Status Date / Time codeine Allergy Rash Verified 03/22/19 07:55 no significant family history Surgical History H/O laminectomy Hx of tonsillectomy Social History Smoking Status: Never smoker ROS Constitutional Constitutional: Reports anorexia, chills, fatigue, fever(s), malaise and other Details: Anosmia ; Denies change in weight, night sweats or weakness Eyes Eyes: Denies blurry vision, change in eye color, change in vision, discharge from eye(s), double vision, erythema, eye pain, loss of vision or other ENT HEENT: Denies abnormal hearing, dysphagia, ear pain, epistaxis, headache(s), hearing loss, nasal congestion, nasal discharge, post nasal drip, sinus pressure, sore throat or other Cardiovascular Cardiovascular: Reports chest pain and dyspnea on exertion; Denies claudication, edema, lightheadedness, orthopnea, palpitations, paroxysmal nocturnal dyspnea, rapid heart rate, syncope or other Respiratory/Chest Respiratory/Chest: Reports cough, dyspnea, shortness of breath at rest and shortness of breath with exertion; Denies excessive phlegm production, hemoptysis, productive cough, wheezing or other Gastrointestinal Gastrointestinal: Reports diarrhea and nausea; Denies abdominal pain, coffee ground emesis, constipation, dyspepsia, hematemesis, hematochezia, loose stools, melena, vomiting or other Genitourinary Genitourinary: Denies burning urination, difficulty urinating, dysuria, hematuria, nocturia, urinary frequency, urinary hesitancy, urinary incontinence, urinary urgency or other Musculoskeletal Musculoskeletal: Denies arthralgias, back pain, joint pain, joint stiffness, joint swelling, myalgias, neck pain or other Neurologic Neurologic: Denies abnormal gait, abnormal speech, confusion, disequilibrium, dizziness, focal weakness, headache(s), numbness, paresthesias, seizure-like activity, seizures, syncope, tingling, tremor(s) or other Psychiatric Psychiatric: Denies anxiety, depression, homicidal ideation, suicidal ideation or other Endocrine Endocrinology: Denies change in body appearance, cold intolerance, excessive sweating, heat intolerance, polydipsia, polyuria or other Hematologic/Lymphatic Hematologic/Lymphatic: Denies anemia, easy bleeding, easy bruising, lymphadenopathy or other Allergic/Immunologic Allergic/Immunologic: Denies rhinitis, hives, eczemia, asthma or other Vital Signs Vital Signs Vital Signs: 05/29/21 22:14 05/29/21 23:04 05/29/21 23:06 Temperature 101.1 F H Temperature Source Temporal Pulse Rate 98 Respiratory Rate 20 H Respiratory Effort Short of Breath Respiratory Depth Normal Respiratory Pattern Tachypnea Blood Pressure 113/71 Blood Pressure Mean 85 Pulse Ox 95 96 Oxygen Delivery Method Nasal Cannula Nasal Cannula Nasal Cannula Oxygen Flow Rate (L/min) 4 4 4 05/30/21 00:56 Temperature Temperature Source Pulse Rate Respiratory Rate Respiratory Effort Respiratory Depth Respiratory Pattern Blood Pressure Blood Pressure Mean Pulse Ox 97 Oxygen Delivery Method Nasal Cannula Oxygen Flow Rate (L/min) 4 Weight Weight: 113.398 kg Body Mass Index (BMI) 39.1 Physical Exam Const alert, oriented x3, no apparent distress and well nourished Constitutional Narrative: Obese middle-aged white female sitting up in bed, friend/family at bedside, nontoxic appearing General Appearance: cooperative HEENT normocephalic, head/scalp atraumatic and hearing grossly normal bilaterally HEENT Narrative: Dry mucous membrane, Mallampati 3, no thrush Eyes PERRL, EOMs intact bilaterally and conjunctivae normal Eyes Narrative: No scleral icterus Neck no lymphadenopathy, supple, no JVD and no carotid bruits Neck Narrative: Trachea midline, no thyroid enlargement Resp normal respiratory effort, no retractions and no use of accessory muscles Resp Narrative: Few scattered crackles but no rhonchi or wheezes, no significant tachypnea noted at this time Auscultation: crackles and rales; Negative for rhonchi or wheezes Cardio regular rhythm, S1 normal heart sound, S2 normal heart sound, no murmurs, no rub, no gallops, no clicks and no JVD Cardio Narrative: Mild tachycardia especially with exertion?movement GI normal to inspection, nondistended, normoactive bowel sounds, soft to palpation, non-tender and non-distended; Negative for hepatosplenomegaly Extremity no clubbing, cyanosis or edema Peripheral Pulses: Yes pulses 2+ throughout Skin no rashes or lesions noted, no wounds, skin turgor normal, no jaundice, no petechiae and no mottling Neuro oriented x3, CN's II-XII intact bilaterally, moves all extremities and no focal motor deficits Sensorium / Orientation: awake and alert Speech: speech normal Motor Exam: strength 5/5 throughout Psych affect normal Results Lab / Micro Data Attestation: I reviewed the patient's lab results. Result Diagrams: 05/30/21 00:50 05/30/21 00:50 Labs: Laboratory Results - last 24 hr 05/30/21 00:50: WBC 5.1, RBC 4.81, Hgb 14.2, Hct 42.6, MCV 88.6, MCH 29.5, MCHC 33.3, RDW Std Deviation 41.0, RDW Coeff of Dante 12.5, Plt Count 240, MPV 9.5, Immature Gran % (Auto) 0.400, Neut % (Auto) 78.5 H, Lymph % (Auto) 13.4 L, [place] % (Auto) 7.5, Eos % (Auto) 0.0, Baso % (Auto) 0.2, Absolute Neuts (auto) 4.0, Absolute Lymphs (auto) 0.68 L, Nucleated RBC % 0 05/30/21 00:50: D-Dimer Quant (PE/DVT) 0.69 H* 05/30/21 00:50: Sodium 134 L, Potassium 3.9, Chloride 100, Carbon Dioxide 26.0, Anion Gap 8, BUN 7, Creatinine 0.97, Estim Creat Clear Calc 70.47, Est GFR (MDRD) Af Amer 80, Est GFR (MDRD) Non-Af 66, BUN/Creatinine Ratio 7.2 L, Glucose 120 H, Calcium 8.2 L, Total Bilirubin 0.50, AST 50 H, ALT 44, Alkaline Phosphatase 63, Troponin I High Sens 34, Total Protein 7.1, Albumin 3.0 L, Globulin 4.1, Albumin/Globulin Ratio 0.7 L 05/30/21 00:50: Lactic Acid 0.8 Micro: Microbiology 05/30/21 00:45 Nasal Secretion SARS-CoV-2 Antigen (Rapid) - Final Radiology Impression Chest X-Ray 05/30/21 00:25 IMPRESSION: Bilateral multilobar pneumonia is unchanged. Electronically Signed: Nickolas Drake MD at 0:55 EST Tel , Service support , Chest CTA 05/30/21 01:38 IMPRESSION: 1. Bilateral pneumonia. 2. No PE. Electronically Signed: Nickolas Drake MD at 2:42 EST Tel , Service support , Assessment & Plan Assessment/Plan (1) Acute respiratory failure with hypoxia: (2) D-dimer, elevated: (3) Hyponatremia: PLAN: Acute hypoxic respiratory failure secondary to COVID-19 pneumonia -Patient is day 10 of symptoms -Start Decadron day 1 of 10 -Patient is not wanting remdesivir -Check urine strep pneumo and Legionella antigens -Obtain sputum culture if possible -I-S -Acapella 10 times every 2 hours while awake -Encourage mobility and prone lying as able -Is currently on 5 to 5.5 L of nasal cannula -Titrate as needed and wean as able -Doubt any underlying bacterial infection at this time but if patient worsens would consider initiating IV antibiotics -Subcu Lovenox 40 mg twice daily Elevated D-dimer -Elevation was only mild -CTA of chest is negative -Prophylactic dose Lovenox Mild hyponatremia -Suspect related to decreased p.o. intake and COVID-19 pneumonia -134 admission -Monitor Vitamin D deficiency -Continue vitamin D replacement Obesity -Recommend weight loss -Complicates overall treatment, prognosis, outcomes DVT prophylaxis -Lovenox 40 mg twice daily -SCDs CODE STATUS -DNR CCA without intubation as per discussion the emergency department--> patient understands the potential ramifications of not being intubated and not having CPR if needed -Patient is aware that she may change her mind with regard to this at any time Charges/Coding Visit Charges Inpatient E&M: 81413 Init Hosp L3
[2021-05-30 07:01] LABS: Absolute Lymphocyte Count 0.59 X10^3/uL (0.83-4.51); Absolute Neutrophil Count 3.1 X10^3/uL (2.0-7.7); Basophil# 0.01 X10^3/uL; Basophil% 0.3 % (0-1); Hematocrit 42.7 % (37-47); Lymphocyte # 0.59 X10^3/ul (0.83-4.51); Lymphocyte % 15.5 % (19-41); Mean Corp Hgb Conc 32.8 g/dL (32-36); Mean Corpuscular Hgb 28.9 pg (27.0-32.0); Mean Corpuscular Volume 88.2 fL (81-99); Mean Platelet Vol. 9.3 fl (6.2-12.0); Monocyte# 0.14 X10^3/uL; Monocyte% 3.7 % (0-10); NRBC Flagged by Analyzer 0 % (0-5); Neutrophil # 3.06 X10^3/uL (2.7-7.7); Neutrophil % 80.2 % (47-70); POSITIVE DIFFERENTIAL YES; POSITIVE MORPHOLOGY YES; Platelet Count 218 K/mm3 (150-450); RBC Distribution Width CV 12.5 % (11.6-14.6); RBC Distribution Width SD 40.5 fl (35.1-43.9); Red Blood Count 4.84 M/mm3 (4.2-5.4); White Blood Count 3.8 K/mm3 (4.4-11.0)
[2021-05-30 07:06] LABS: Differential Indicated SCAN CRITERIA MET
[2021-05-30 07:24] LABS: ALB/GLOB Ratio 0.7 RATIO (0.9-2.4); AST(SGOT) 43 U/L (15-37); Alanine Aminotransfer ALT/SGPT 45 U/L (13-56); Albumin, Serum 2.9 g/dL (3.2-5.0); Alkaline Phosphatase 59 U/L (45-117); Anion Gap 8 (5-15); BUN 7 mg/dL (7-18); BUN/Creat Ratio 8.5 RATIO (10-20); Calcium,Total 8.1 mg/dL (8.5-10.1); Chloride 105 mmol/L (98-107); Creatinine, Serum 0.82 mg/dL (0.55-1.02); EST Glomerular Filtration Rate 80 mL/min (>60); Est Glom Filt Rate - Afr Amer 97 mL/min (>60); Estimated Creatinine Clearance 83.36 ml/min; Globulin 4.2 g/dL (2.2-4.2); Glucose 148 mg/dL (74-106); Magnesium 2.5 mg/dL (1.6-2.6); Phosphorus 2.5 mg/dL (2.5-4.9); Potassium 4.3 mmol/L (3.5-5.1); Protein, Total 7.1 g/dL (6.4-8.2); Sodium Level 136 mmol/L (136-145)
[2021-05-30 08:45] LABS: Procalcitonin 0.05 ng/mL (0.00-0.09)
[2021-05-30] MEDS: Ascorbic Acid 500 MG Tablet PO (10:22)
[2021-05-30] MEDS: Cholecalciferol (VIT D3) 25 MCG TABLET (1,000 UNITS) 50 MCG PO (10:22)
[2021-05-30] MEDS: Famotidine 20 MG Tablet PO ×2 (10:23→20:09)
[2021-05-30] MEDS: Enoxaparin 40 MG/0.4 ML Syringe SC ×2 (10:23→20:09)
--- NOTE | 2021-05-30 12:30 | CASEMGMT ---
PRISCILLA OAKLEY Assessment: Face to Face with pt for initial transition planning/care coordination assessment. PRISCILLA OAKLEY introduced self and role at [facility], pt voices understanding and consents to assessment. Pt is A/O x4 and answers all questions appropriately at this time. Pt sitting up in bed eating lunch with sister in room. Pt has O2 on in no distress. Care providers, pharmacy, and demographics verified/updated. Admitting Dx: acute hypoxic resp failure secondary to COVID 19 pna PCP:Pt denies having a PCP, she denies need for local healthcare directory. Pt states she was seeing the EXERCISE SPECIALIST at her [facility] ([employer] [place] Pt is not vaccinated and is no longer aloud on the campus. (She works from home. ) She states she will find another PCP. Specialists: Pt denies. Preferred Pharmacy: [facility] Insurance: [employer] Prescription Benefit: yes LW/HPOA: Pt denies having a LW/DPOA and denies need for info regarding AD. LNOK: Murray Lemus, mother Living Arrangements: Pt lives with 16 year old son in a tri level house with no steps to enter. Pt reports she is I in ADL's and denies concerns at home. Transportation: Pt drives self and denies concerns with transportation. DME/HHC/SNF: Pt has a portable O2 concentrator that was set up by Licha Pelayo NP. Pt is renting this from [facility] and it is not being billed through insurance. Pt also has a nebulizer and is borrowing her sister's pulse ox. Pt denies previous HHC or SNF stays. Pt was first tested at [facility]. She does not plan on quarantining from her son but is aware it is recommended to use separate bedrooms and bathrooms. Provided pt with local in network list of DME companies should she need O2 upon dc, she has no preference. Pt states no concerns with going home at time of dc. Pt states no further concerns/needs. CM to follow. Advised pt to ask CM if any further question/concerns/needs arise, voices understanding. Pt Goal: Home Plan: Home
--- NOTE | 2021-05-30 13:03 | PN.HOSP_ITS ---
Subjective Subjective Patient seen and examined. She was admitted for acute hypoxic respiratory failure due to COVID-19 infection. She states she is feeling better and has no active complaints. Review of systems otherwise negative. She is on 5 L of oxygen. Objective Data Objective Data Vital Signs: Vital Signs Temp Pulse Resp BP Pulse Ox 97.3 F L 78 18 122/77 H 95 05/30/21 10:30 05/30/21 10:30 05/30/21 10:30 05/30/21 10:30 05/30/21 10:30 Oxygen Flow Rate (L/min) 5 Oxygen Delivery Method Nasal Cannula Weight: 252 lb 3.341 oz Body Mass Index (BMI) 39.4 Intake & Output: Intake and Output for Last 24 Hours 05/28/21 05/29/21 05/30/21 23:59 23:59 23:59 Intake Total 1000 / 1000 Balance 1000 / 1000 Lab / Micro Data Result Diagrams: 05/30/21 06:36 05/30/21 06:36 Labs: Laboratory Results - last 24 hr 05/30/21 00:50: WBC 5.1, RBC 4.81, Hgb 14.2, Hct 42.6, MCV 88.6, MCH 29.5, MCHC 33.3, RDW Std Deviation 41.0, RDW Coeff of Dante 12.5, Plt Count 240, MPV 9.5, Immature Gran % (Auto) 0.400, Neut % (Auto) 78.5 H, Lymph % (Auto) 13.4 L, [place] % (Auto) 7.5, Eos % (Auto) 0.0, Baso % (Auto) 0.2, Absolute Neuts (auto) 4.0, Absolute Lymphs (auto) 0.68 L, Nucleated RBC % 0 05/30/21 00:50: D-Dimer Quant (PE/DVT) 0.69 H* 05/30/21 00:50: Sodium 134 L, Potassium 3.9, Chloride 100, Carbon Dioxide 26.0, Anion Gap 8, BUN 7, Creatinine 0.97, Estim Creat Clear Calc 70.47, Est GFR (MDRD) Af Amer 80, Est GFR (MDRD) Non-Af 66, BUN/Creatinine Ratio 7.2 L, Glucose 120 H, Calcium 8.2 L, Total Bilirubin 0.50, AST 50 H, ALT 44, Alkaline Phosphatase 63, Troponin I High Sens 34, Total Protein 7.1, Albumin 3.0 L, Globulin 4.1, Albumin/Globulin Ratio 0.7 L 05/30/21 00:50: Lactic Acid 0.8 05/30/21 06:36: WBC 3.8 L, RBC 4.84, Hgb 14.0, Hct 42.7, MCV 88.2, MCH 28.9, M CHC 32.8, RDW Std Deviation 40.5, RDW Coeff of Dante 12.5, Plt Count 218, MPV 9.3, Immature Gran % (Auto) 0.300, Neut % (Auto) 80.2 H, Lymph % (Auto) 15.5 L, [place] % (Auto) 3.7, Eos % (Auto) 0.0, Baso % (Auto) 0.3, Absolute Neuts (auto) 3.1, Absolute Lymphs (auto) 0.59 L, Nucleated RBC % 0, Diff Path Review September05/30/21 06:36: Sodium 136, Potassium 4.3, Chloride 105, Carbon Dioxide 23.0, Anion Gap 8, BUN 7, Creatinine 0.82, Estim Creat Clear Calc 83.36, Est GFR (MDRD) Af Amer 97, Est GFR (MDRD) Non-Af 80, BUN/Creatinine Ratio 8.5 L, Glucose 148 H, Calcium 8.1 L, Phosphorus 2.5, Magnesium 2.5, Total Bilirubin 0.50, AST 43 H, ALT 45, Alkaline Phosphatase 59, Total Protein 7.1, Albumin 2.9 L, Globulin 4.2, Albumin/Globulin Ratio 0.7 L 05/30/21 06:36: Procalcitonin 0.05 Micro: Microbiology 05/30/21 08:30 Urine, Clean Catch Legionella Antigen - Final 05/30/21 08:30 Urine, Clean Catch Streptococcus pneumoniae Antigen (M - Final 05/30/21 00:45 Nasal Secretion SARS-CoV-2 Antigen (Rapid) - Final Radiography Diagnostic Testing: Radiology Impression Chest X-Ray 05/30/21 00:25 IMPRESSION: Bilateral multilobar pneumonia is unchanged. Electronically Signed: Nickolas Drake MD at 0:55 EST Tel , Service support , Chest CTA 05/30/21 01:38 IMPRESSION: 1. Bilateral pneumonia. 2. No PE. Electronically Signed: Nickolas Drake MD at 2:42 EST Tel , Service support , Physical Exam Const alert, oriented x3 and no apparent distress Exam Limitations: no limitations HEENT head/scalp atraumatic Head and Scalp: normocephalic Eyes PERRL, EOMs intact bilaterally and conjunctivae normal Neck no lymphadenopathy and supple Resp Resp Narrative: diminished breath sounds bibasally, no wheezes or crackles. on 5L of oxygen by nasal canula GI normal to inspection, nondistended, normoactive bowel sounds, soft to palpation, non-tender and non-distended Extremity normal to inspection, full ROM and no clubbing, cyanosis or edema Peripheral Pulses: Yes pulses 2+ throughout Skin no rashes or lesions noted Neuro oriented x3, CN's II-XII intact bilaterally and moves all extremities Sensorium / Orientation: awake and alert Psych affect normal Assessment & Plan Assessment/Plan (1) Acute respiratory failure with hypoxia: (2) D-dimer, elevated: (3) Pneumonia due to COVID-19 virus: (4) Hyponatremia: PLAN: #Acute hypoxic respiratory failure due to covid 19 pneumonia * on decadron. Patient didnt want remdesivir. * on 5L of oxygen. * SYmptoms started on 05/21/2021. To remain in isolation till Jun 10, 2020. * titrate oxygen to maintain sats >90% * urine for strep and legionella pending * #Elevated D dimer * Due to Covid. CT of the chest was negative. * #Hyponatremia: Sodium was 134 on admission. resolved, now 136. #Morbid obesity: BMI is 39.5. Complicates acute care, expected recovery and prognosis. DVT prophylaxis: Lovenox 40 mg twice daily CODE STATUS: DNR CCA no intubation per patient's wishes.
[2021-05-30 15:48] LABS: Pathologist Review Reviewed
[2021-05-30] MEDS: Acetaminophen 325 MG Tablet 650 MG PO (20:10)
[2021-05-31] VITALS (8 sets, daily range): BP systolic 116–146; BP diastolic 69–91; PULSE 79–91; RESP 16–18; TEMP 36.8–37.5; O2SAT 87–96
[2021-05-31] MEDS: Acetaminophen 325 MG Tablet 650 MG PO ×2 (03:14→16:42)
[2021-05-31] MEDS: guaiFENesin 10 ML UDC (200MG/10ML) 20 ML PO ×4 (03:14→21:21)
--- NOTE | 2021-05-31 03:22 | NURSING ---
Patient assisted into prone position and 02 increased to 7L, NC during this time.
[2021-05-31 07:02] LABS: Absolute Lymphocyte Count 1.11 X10^3/uL (0.83-4.51); Absolute Neutrophil Count 8.2 X10^3/uL (2.0-7.7); Basophil# 0.01 X10^3/uL; Basophil% 0.1 % (0-1); Hematocrit 42.9 % (37-47); Hemoglobin 13.8 g/dL (12.0-15.0); Lymphocyte # 1.11 X10^3/ul (0.83-4.51); Lymphocyte % 11.2 % (19-41); Mean Corp Hgb Conc 32.2 g/dL (32-36); Mean Corpuscular Hgb 28.9 pg (27.0-32.0); Mean Corpuscular Volume 89.7 fL (81-99); Mean Platelet Vol. 10.1 fl (6.2-12.0); Monocyte# 0.52 X10^3/uL; Monocyte% 5.3 % (0-10); NRBC Flagged by Analyzer 0 % (0-5); Neutrophil % 83.1 % (47-70); Platelet Count 267 K/mm3 (150-450); RBC Distribution Width CV 12.4 % (11.6-14.6); RBC Distribution Width SD 41.3 fl (35.1-43.9); Red Blood Count 4.78 M/mm3 (4.2-5.4); White Blood Count 9.9 K/mm3 (4.4-11.0)
[2021-05-31 07:43] LABS: Anion Gap 8 (5-15); BUN 9 mg/dL (7-18); BUN/Creat Ratio 11.1 RATIO (10-20); Calcium,Total 8.4 mg/dL (8.5-10.1); Chloride 104 mmol/L (98-107); Creatinine, Serum 0.81 mg/dL (0.55-1.02); EST Glomerular Filtration Rate 81 mL/min (>60); Est Glom Filt Rate - Afr Amer 97 mL/min (>60); Estimated Creatinine Clearance 84.39 ml/min; Glucose 110 mg/dL (74-106); Potassium 3.7 mmol/L (3.5-5.1); Sodium Level 139 mmol/L (136-145)
[2021-05-31] MEDS: Ascorbic Acid 500 MG Tablet PO (08:33)
[2021-05-31] MEDS: dexAMETHasone 2 MG TABLET 6 MG PO (08:33)
[2021-05-31] MEDS: Cholecalciferol (VIT D3) 25 MCG TABLET (1,000 UNITS) 50 MCG PO (08:33)
[2021-05-31] MEDS: Famotidine 20 MG Tablet PO ×2 (08:33→21:16)
[2021-05-31] MEDS: Enoxaparin 40 MG/0.4 ML Syringe SC ×2 (08:34→21:16)
--- NOTE | 2021-05-31 12:12 | PN.HOSP_ITS ---
Subjective Subjective Patient seen and examined. She complains of pleuritic chest pain. She has no other complaints though she still feels short of breath. REview of systems is otherwise negative. Objective Data Objective Data Vital Signs: Vital Signs Temp Pulse Resp BP Pulse Ox 98.9 F 91 18 127/79 H 93 05/31/21 08:36 05/31/21 08:36 05/31/21 08:36 05/31/21 08:36 05/31/21 08:36 Oxygen Flow Rate (L/min) 7 Oxygen Delivery Method Nasal Cannula Weight: 252 lb 3.341 oz Body Mass Index (BMI) 39.4 Intake & Output: Intake and Output for Last 24 Hours 05/29/21 05/30/21 05/31/21 23:59 23:59 23:59 Intake Total 1500 / 1500 Balance 1500 / 1500 Medical Nutrition Assessment Dietitian: Malnutrition Criteria Met Start: 05/30/21 15:3 9 Freq: Status: Active Protocol: Document 05/30/21 15:39 SLA (Rec: 05/30/21 15:39 SLA [id number]) Nutrition Malnutrition Evidence of Malnutrition Exists Yes Malnutrition (severe): Acute Illness/Injury Evidenced By Suboptimal Energy Intake ( Severe),Weight Loss (Severe) Clinical Problem Acute Disease or Injury Related Malnutrition Etiology related to acute illness and nausea/diarrhea so unable to meet est nutritional needs Signs/Symptoms as evidenced by <75% po intake 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 Dietitian Recommendations/Changes Continue liberal regular diet Provide oral nutritional supplements if pt requests Lab / Micro Data Result Diagrams: 05/31/21 05:55 05/31/21 05:55 Labs: Laboratory Results - last 24 hr 05/30/21 06:36: Diff Path Review Reviewed 05/31/21 05:55: WBC 9.9, RBC 4.78, Hgb 13.8, Hct 42.9, MCV 89.7, MCH 28.9, MCHC 32.2, RDW Std Deviation 41.3, RDW Coeff of Dante 12.4, Plt Count 267, MPV 10.1, Immature Gran % (Auto) 0.300, Neut % (Auto) 83.1 H, Lymph % (Auto) 11.2 L, [place] % (Auto) 5.3, Eos % (Auto) 0.0, Baso % (Auto) 0.1, Absolute Neuts (auto) 8.2 H, Absolute Lymphs (auto) 1.11, Nucleated RBC % 0 05/31/21 05:55: Sodium 139, Potassium 3.7, Chloride 104, Carbon Dioxide 27.0, Anion Gap 8, BUN 9, Creatinine 0.81, Estim Creat Clear Calc 84.39, Est GFR (MDRD) Af Amer 97, Est GFR (MDRD) Non-Af 81, BUN/Creatinine Ratio 11.1, Glucose 110 H, Calcium 8.4 L Micro: Microbiology 05/30/21 08:30 Urine, Clean Catch Legionella Antigen - Final 05/30/21 08:30 Urine, Clean Catch Streptococcus pneumoniae Antigen (M - Final 05/30/21 00:45 Nasal Secretion SARS-CoV-2 Antigen (Rapid) - Final Physical Exam Const alert, oriented x3, no apparent distress and well nourished General Appearance: cooperative Exam Limitations: no limitations HEENT normocephalic, head/scalp atraumatic, hearing grossly normal bilaterally and m oist oral mucous membranes Head and Scalp: normocephalic Eyes PERRL, EOMs intact bilaterally and conjunctivae normal Neck no lymphadenopathy, supple, no JVD and no carotid bruits Resp normal respiratory effort, no retractions and no use of accessory muscles Resp Narrative: diminished breath sounds bibasally, no wheezes or crackles. on 7L of oxygen by nasal canula Auscultation: crackles and rales; Negative for rhonchi or wheezes Cardio regular rate, regular rhythm, S1 normal heart sound, S2 normal heart sound, no murmurs, no rub, no gallops, no clicks and no JVD GI normal to inspection, nondistended, normoactive bowel sounds, soft to palpation, non-tender and non-distended; Negative for hepatosplenomegaly Extremity normal to inspection, full ROM and no clubbing, cyanosis or edema Peripheral Pulses: Yes pulses 2+ throughout Skin no rashes or lesions noted, no wounds, skin turgor normal, no jaundice, no petechiae and no mottling Neuro oriented x3, CN's II-XII intact bilaterally, moves all extremities and no focal motor deficits Sensorium / Orientation: awake and alert Speech: speech normal Motor Exam: strength 5/5 throughout Psych affect normal Assessment & Plan Assessment/Plan (1) Acute respiratory failure with hypoxia: (2) D-dimer, elevated: (3) Pneumonia due to COVID-19 virus: (4) Hyponatremia: PLAN: #Acute hypoxic respiratory failure due to covid 19 pneumonia * on decadron. Patient doesnt want remdesivir and also says she doesnt want baricitinib. * now on 7L of oxygen * SYmptoms started on 05/21/2021. To remain in isolation till Jun 10, 2020. * titrate oxygen to maintain sats >90% * urine for strep and legionella pending * #Elevated D dimer * Due to Covid. CT of the chest was negative. * #Hyponatremia: resolved. #Morbid obesity: BMI is 39.5. Complicates acute care, expected recovery and prognosis. DVT prophylaxis: Lovenox 40 mg twice daily CODE STATUS: DNR CCA no intubation per patient's wishes. Charges/Coding Visit Charges Inpatient E&M: 37547 Subs Hosp L3
[2021-05-31] MEDS: Albuterol Sulfate 8 gm Inhaler (60 puffs) 2 PUFF INHALATION (15:44)
[2021-06-01 02:16] VITALS: BP 151/82; PULSE 82; RESP 18; TEMP 36.9; O2SAT 92
[2021-06-01] MEDS: guaiFENesin 10 ML UDC (200MG/10ML) 20 ML PO ×4 (02:19→22:01)
[2021-06-01 06:32] LABS: Absolute Lymphocyte Count 0.93 X10^3/uL (0.83-4.51); Absolute Neutrophil Count 6.8 X10^3/uL (2.0-7.7); Basophil# 0.01 X10^3/uL; Basophil% 0.1 % (0-1); Hematocrit 40.8 % (37-47); Hemoglobin 13.5 g/dL (12.0-15.0); Lymphocyte # 0.93 X10^3/ul (0.83-4.51); Lymphocyte % 11.1 % (19-41); Mean Corp Hgb Conc 33.1 g/dL (32-36); Mean Corpuscular Hgb 29.7 pg (27.0-32.0); Mean Corpuscular Volume 89.7 fL (81-99); Mean Platelet Vol. 9.2 fl (6.2-12.0); Monocyte# 0.55 X10^3/uL; Monocyte% 6.6 % (0-10); NRBC Flagged by Analyzer 0 % (0-5); Neutrophil # 6.84 X10^3/uL (2.7-7.7); Neutrophil % 81.7 % (47-70); Platelet Count 270 K/mm3 (150-450); RBC Distribution Width CV 12.6 % (11.6-14.6); RBC Distribution Width SD 41.6 fl (35.1-43.9); Red Blood Count 4.55 M/mm3 (4.2-5.4); White Blood Count 8.4 K/mm3 (4.4-11.0)
[2021-06-01 07:06] LABS: Anion Gap 7 (5-15); BUN 9 mg/dL (7-18); Calcium,Total 8.5 mg/dL (8.5-10.1); Chloride 103 mmol/L (98-107); Creatinine, Serum 0.69 mg/dL (0.55-1.02); EST Glomerular Filtration Rate 97 mL/min (>60); Est Glom Filt Rate - Afr Amer 118 mL/min (>60); Estimated Creatinine Clearance 99.07 ml/min; Glucose 105 mg/dL (74-106); Sodium Level 138 mmol/L (136-145)
[2021-06-01 09:00] VITALS: O2SAT 94
[2021-06-01 10:08] VITALS: BP 137/80; PULSE 83; RESP 18; TEMP 36.9; O2SAT 94
[2021-06-01] MEDS: Ascorbic Acid 500 MG Tablet PO (10:22)
[2021-06-01] MEDS: dexAMETHasone 2 MG TABLET 6 MG PO (10:22)
[2021-06-01] MEDS: Famotidine 20 MG Tablet PO ×2 (10:23→20:53)
[2021-06-01] MEDS: Cholecalciferol (VIT D3) 25 MCG TABLET (1,000 UNITS) 50 MCG PO (10:23)
[2021-06-01] MEDS: Enoxaparin 40 MG/0.4 ML Syringe SC ×2 (10:23→20:52)
[2021-06-01] MEDS: Acetaminophen 325 MG Tablet 650 MG PO ×2 (10:24→20:53)
--- NOTE | 2021-06-01 12:37 | NURSING ---
Pt was up ambulating to bathroom, and then sat on edge of bed until she recovered and then walked to other side of the bed and now sitting on edge of bed with tray in front of her.
--- NOTE | 2021-06-01 13:23 | PN.HOSP_ITS ---
Subjective Subjective Patient seen and examined. She had no active complaints. She still feels short of breath. She is on 7 L of oxygen. Review of systems otherwise negative. Objective Data Objective Data Vital Signs: Vital Signs Temp Pulse Resp BP Pulse Ox 98.5 F 83 18 137/80 H 94 06/01/21 10:08 06/01/21 10:08 06/01/21 10:08 06/01/21 10:08 06/01/21 10:08 Oxygen Flow Rate (L/min) 7 Oxygen Delivery Method High Flow Weight: 252 lb 3.341 oz Body Mass Index (BMI) 39.4 Intake & Output: Intake and Output for Last 24 Hours 05/30/21 05/31/21 06/01/21 23:59 23:59 23:59 Intake Total 1500 / 1500 650 / 650 Balance 1500 / 1500 650 / 650 Medical Nutrition Assessment Dietitian: Malnutrition Criteria Met Start: 05/30/21 15:39 Freq: Status: Active Protocol: Document 05/30/21 15:39 JANNETTE (Rec: 05/30/21 15:39 SLA [id number]) Nutrition Malnutrition Evidence of Malnutrition Exists Yes Malnutrition (severe): Acute Illness/Injury Evidenced By Suboptimal Energy Intake ( Severe),Weight Loss (Severe) Clinical Problem Acute Disease or Injury Related Malnutrition Etiology related to acute illness and nausea/diarrhea so unable to meet est nutritional needs Signs/Symptoms as evidenced by <75% po intake and 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 Dietitian Recommendations/Changes Continue liberal regular diet Provide oral nutritional supplements if pt requests Lab / Micro Data Result Diagrams: 06/01/21 06:05 06/01/21 06:05 Labs: Laboratory Results - last 24 hr 06/01/21 06:05: WBC 8.4, RBC 4.55, Hgb 13.5, Hct 40.8, MCV 89.7, MCH 29.7, MCHC 33.1, RDW Std Deviation 41.6, RDW Coeff of Dante 12.6, Plt Count 270, MPV 9.2, Immature Gran % (Auto) 0.500, Neut % (Auto) 81.7 H, Lymph % (Auto) 11.1 L, [place] % (Auto) 6.6, Eos % (Auto) 0.0, Baso % (Auto) 0.1, Absolute Neuts (auto) 6.8, Absolute Lymphs (auto) 0.93, Nucleated RBC % 0 06/01/21 06:05: Sodium 138, Potassium 4.0, Chloride 103, Carbon Dioxide 28.0, Anion Gap 7, BUN 9, Creatinine 0.69, Estim Creat Clear Calc 99.07, Est GFR (MDRD) Af Amer 118, Est GFR (MDRD) Non-Af 97, BUN/Creatinine Ratio 13.0, Glucose 105, Calcium 8.5 Micro: Microbiology 05/30/21 17:42 Sputum, Expectorated/Coughed Gram Stain - Final 05/30/21 17:42 Sputum, Expectorated/Coughed Respiratory Culture - Preliminary Appears to be normal respiratory nela. Further studies to follow. 05/30/21 01:10 Blood Culture (Wb) - Anticubital Left Blood Culture - Preliminary No growth in 48 hours. 05/30/21 00:50 Blood Culture (Wb) - Anticubital Right Blood Culture - Preliminary No growth in 48 hours. 05/30/21 08:30 Urine, Clean Catch Legionella Antigen - Final 05/30/21 08:30 Urine, Clean Catch Streptococcus pneumoniae Antigen (M - Final 05/30/21 00:45 Nasal Secretion SARS-CoV-2 Antigen (Rapid) - Final Physical Exam Const alert, oriented x3, no apparent distress and well nourished General Appearance: cooperative Exam Limitations: no limitations HEENT normocephalic, head/scalp atraumatic, hearing grossly normal bilaterally and moist oral mucous membranes Head and Scalp: normocephalic Eyes PERRL, EOMs intact bilaterally and conjunctivae normal Neck no lymphadenopathy, supple, no JVD and no carotid bruits Resp Resp Narrative: diminished breath sounds bibasally, no wheezes or crackles. on 7L of oxygen by nasal canula Auscultation: wheezes Cardio regular rate, regular rhythm, S1 normal heart sound, S2 normal heart sound, no murmurs, no rub, no gallops, no clicks and no JVD GI normal to inspection, nondistended, normoactive bowel sounds, soft to palpation, non-tender and non-distended; Negative for hepatosplenomegaly Extremity normal to inspection, full ROM and no clubbing, cyanosis or edema Peripheral Pulses: Yes pulses 2+ throughout Skin no rashes or lesions noted, no wounds, skin turgor normal, no jaundice, no petechiae and no mottling Neuro oriented x3, CN's II-XII intact bilaterally, moves all extremities and no focal motor deficits Sensorium / Orientation: awake and alert Speech: speech normal Motor Exam: strength 5/5 throughout Psych affect normal Assessment & Plan Assessment/Plan (1) Acute respiratory failure with hypoxia: (2) D-dimer, elevated: (3) Pneumonia due to COVID-19 virus: (4) Hyponatremia: PLAN: #Acute hypoxic respiratory failure due to covid 19 pneumonia * on decadron. Patient doesnt want remdesivir and also says she doesnt want baricitinib. * remains on 7L of oxygen * SYmptoms started on 05/21/2021. To remain in isolation till Jun 10, 2020. * titrate oxygen to maintain sats >90% * urine for strep and legionella pending * #Elevated D dimer * Due to Covid. CT of the chest was negative. * #Hyponatremia: resolved. #Morbid obesity: BMI is 39.5. Complicates acute care, expected recovery and prognosis. DVT prophylaxis: Lovenox 40 mg twice daily CODE STATUS: DNR CCA no intubation per patient's wishes. Charges/Coding Visit Charges Inpatient E&M: 76791 Subs Hosp L2
[2021-06-01 17:53] VITALS: BP 115/71; PULSE 82; RESP 18; TEMP 36.7; O2SAT 94
[2021-06-01 18:00] VITALS: O2SAT 92
[2021-06-01] MEDS: Albuterol Sulfate 8 gm Inhaler (60 puffs) 2 PUFF INHALATION (18:24)
[2021-06-01 20:47] VITALS: BP 133/76; PULSE 83; RESP 18; TEMP 36.8; O2SAT 92
[2021-06-01] MEDS: MELATONIN 10 MG TABLET PO (20:53)
[2021-06-01] MEDS: 0.9% Saline Lock 10 ML Syringe IV (20:53)
[2021-06-02 02:29] VITALS: BP 135/79; PULSE 73; RESP 18; TEMP 36.6; O2SAT 94
[2021-06-02] MEDS: guaiFENesin 10 ML UDC (200MG/10ML) 20 ML PO ×2 (02:40→22:24)
[2021-06-02 05:59] LABS: Absolute Lymphocyte Count 1.01 X10^3/uL (0.83-4.51); Absolute Neutrophil Count 5.6 X10^3/uL (2.0-7.7); Basophil# 0.01 X10^3/uL; Basophil% 0.1 % (0-1); Hematocrit 39.7 % (37-47); Hemoglobin 13.1 g/dL (12.0-15.0); Lymphocyte # 1.01 X10^3/ul (0.83-4.51); Lymphocyte % 13.7 % (19-41); Mean Corpuscular Hgb 29.6 pg (27.0-32.0); Mean Corpuscular Volume 89.8 fL (81-99); Mean Platelet Vol. 9.6 fl (6.2-12.0); Monocyte# 0.63 X10^3/uL; Monocyte% 8.6 % (0-10); NRBC Flagged by Analyzer 0 % (0-5); Neutrophil # 5.63 X10^3/uL (2.7-7.7); Neutrophil % 76.6 % (47-70); POSITIVE MORPHOLOGY YES; Platelet Count 308 K/mm3 (150-450); RBC Distribution Width CV 12.5 % (11.6-14.6); RBC Distribution Width SD 41.5 fl (35.1-43.9); Red Blood Count 4.42 M/mm3 (4.2-5.4); White Blood Count 7.4 K/mm3 (4.4-11.0)
[2021-06-02 06:09] LABS: Differential Indicated SCAN CRITERIA MET
[2021-06-02 06:42] LABS: Anion Gap 6 (5-15); BUN 9 mg/dL (7-18); Calcium,Total 8.5 mg/dL (8.5-10.1); Chloride 101 mmol/L (98-107); Creatinine, Serum 0.69 mg/dL (0.55-1.02); EST Glomerular Filtration Rate 97 mL/min (>60); Est Glom Filt Rate - Afr Amer 117 mL/min (>60); Estimated Creatinine Clearance 99.07 ml/min; Glucose 111 mg/dL (74-106); Potassium 4.3 mmol/L (3.5-5.1); Sodium Level 139 mmol/L (136-145)
[2021-06-02 09:21] VITALS: O2SAT 93
[2021-06-02 09:26] VITALS: BP 124/81; PULSE 79; RESP 18; TEMP 36.7; O2SAT 94
[2021-06-02] MEDS: dexAMETHasone 2 MG TABLET 6 MG PO (09:42)
[2021-06-02] MEDS: Cholecalciferol (VIT D3) 25 MCG TABLET (1,000 UNITS) 50 MCG PO (09:43)
[2021-06-02] MEDS: Ascorbic Acid 500 MG Tablet PO (09:43)
[2021-06-02] MEDS: Enoxaparin 40 MG/0.4 ML Syringe SC ×2 (09:43→22:26)
[2021-06-02] MEDS: Famotidine 20 MG Tablet PO ×2 (09:43→22:24)
--- NOTE | 2021-06-02 12:28 | PN.HOSP_ITS ---
Subjective Subjective Patient seen and examined. She says she did feel short of breath overnight, but had no active complaints. Review of systems was otherwise negative. SHe was on 8L of oxygen at time of review. Objective Data Objective Data Vital Signs: Vital Signs Temp Pulse Resp BP Pulse Ox 98.1 F 79 18 124/81 H 94 06/02/21 09:26 06/02/21 09:26 06/02/21 09:26 06/02/21 09:26 06/02/21 09:26 Oxygen Flow Rate (L/min) 8 Oxygen Delivery Method High Flow Weight: 252 lb 3.341 oz Body Mass Index (BMI) 39.4 Intake & Output: Intake and Output for Last 24 Hours 05/31/21 06/01/21 06/02/21 23:59 23:59 23:59 Intake Total 650 / 650 600 / 600 Balance 650 / 650 600 / 600 Medical Nutrition Assessment Dietitian: Malnutrition Criteria Met Start: 05/30/21 15:39 Freq: Status: Active Protocol: Document 05/30/21 15:39 JANNETTE (Rec: 05/30/21 15:39 JANNETTE [id number]) Nutrition Malnutrition Evidence of Malnutrition Exists Yes Malnutrition (severe): Acute Illness/Injury Evidenced By Suboptimal Energy Intake ( Severe),Weight Loss (Severe) Clinical Problem Acute Disease or Injury Related Malnutrition Etiology related to acute illness and nausea/diarrhea so unable to meet est nutritional needs Signs/Symptoms as evidenced by <75% po intake and 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 Dietitian Recommendations/Changes Continue liberal regular diet Provide oral nutritional supplements if pt requests Lab / Micro Data Result Diagrams: 06/02/21 04:23 06/02/21 04:23 Labs: Laboratory Results - last 24 hr 06/02/21 04:23: WBC 7.4, RBC 4.42, Hgb 13.1, Hct 39.7, MCV 89.8, MCH 29.6, MCHC 33.0, RDW Std Deviation 41.5, RDW Coeff of Dante 12.5, Plt Count 308, MPV 9.6, Immature Gran % (Auto) 1.000 H, Neut % (Auto) 76.6 H, Lymph % (Auto) 13.7 L, [place] % (Auto) 8.6, Eos % (Auto) 0.0, Baso % (Auto) 0.1, Absolute Neuts (auto) 5.6, Absolute Lymphs (auto) 1.01, Nucleated RBC % 0 06/02/21 04:23: Sodium 139, Potassium 4.3, Chloride 101, Carbon Dioxide 32.0, Anion Gap 6, BUN 9, Creatinine 0.69, Estim Creat Clear Calc 99.07, Est GFR (MDRD) Af Amer 117, Est GFR (MDRD) Non-Af 97, BUN/Creatinine Ratio 13.0, Glucose 111 H, Calcium 8.5 Micro: Microbiology 05/30/21 17:42 Sputum, Expectorated/Coughed Gram Stain - Final 05/30/21 17:42 Sputum, Expectorated/Coughed Respiratory Culture - Prelimi nary Appears to be normal respiratory nela. Further studies to follow. 05/30/21 01:10 Blood Culture (Wb) - Anticubital Left Blood Culture - Preliminary No growth in 48 hours. 05/30/21 00:50 Blood Culture (Wb) - Anticubital Right Blood Culture - Preliminary No growth in 48 hours. 05/30/21 08:30 Urine, Clean Catch Legionella Antigen - Final 05/30/21 08:30 Urine, Clean Catch Streptococcus pneumoniae Antigen (M - Final 05/30/21 00:45 Nasal Secretion SARS-CoV-2 Antigen (Rapid) - Final Physical Exam Const alert, oriented x3, no apparent distress and well nourished General Appearance: cooperative Exam Limitations: no limitations HEENT normocephalic, head/scalp atraumatic, hearing grossly normal bilaterally and moist oral mucous membranes Head and Scalp: normocephalic Eyes PERRL, EOMs intact bilaterally and conjunctivae normal Eyes Narrative: No scleral icterus Neck no lymphadenopathy, supple, no JVD and no carotid bruits Resp normal respiratory effort, no retractions and no use of accessory muscles Resp Narrative: diminished breath sounds bibasally, no wheezes or crackles. on 8L of oxygen by nasal canula Auscultation: wheezes Cardio regular rate, regular rhythm, S1 normal heart sound, S2 normal heart sound, no murmurs, no rub and no JVD GI normal to inspection, nondistended, normoactive bowel sounds, soft to palpation, non-tender and non-distended; Negative for hepatosplenomegaly Extremity normal to inspection, full ROM and no clubbing, cyanosis or edema Peripheral Pulses: Yes pulses 2+ throughout Skin no rashes or lesions noted, no wounds, skin turgor normal, no jaundice, no petechiae and no mottling Neuro oriented x3, CN's II-XII intact bilaterally, moves all extremities and no focal motor deficits Sensorium / Orientation: awake and alert Speech: speech normal Motor Exam: strength 5/5 throughout Psych affect normal Assessment & Plan Assessment/Plan (1) Acute respiratory failure with hypoxia: (2) D-dimer, elevated: (3) Pneumonia due to COVID-19 virus: (4) Hyponatremia: PLAN: #Acute hypoxic respiratory failure due to covid 19 pneumonia * on decadron. Patient doesnt want remdesivir and also says she doesnt want baricitinib. * remains on 7L of oxygen * SYmptoms started on 05/21/2021. To remain in isolation till Jun 10, 2020. * titrate oxygen to maintain sats >90% * urine for strep and legionella were negative. * respiratory culture appears to be normal respiratory nela, and gram statin showed 4+ wbc and 2+ gram positive cocci. * will start on levaquin empirically. * #Elevated D dimer * Due to Covid. CT of the chest was negative. * #Hyponatremia: resolved. #Morbid obesity: BMI is 39.5. Complicates acute care, expected recovery and prognosis. DVT prophylaxis: Lovenox 40 mg twice daily CODE STATUS: DNR CCA no intubation ; She would like CPR, but no intubation. Charges/Coding Visit Charges Inpatient E&M: 27938 Subs Hosp L3
[2021-06-02 14:36] VITALS: BP 131/85; PULSE 78; RESP 18; TEMP 36.7; O2SAT 93
[2021-06-02] MEDS: Acetaminophen 325 MG Tablet 650 MG PO (22:24)
[2021-06-02] MEDS: MELATONIN 10 MG TABLET PO (22:24)
[2021-06-02 22:29] VITALS: BP 150/99; PULSE 78; RESP 20; TEMP 37; O2SAT 96
[2021-06-03 05:47] VITALS: BP 130/90; PULSE 72; RESP 18; TEMP 36.7; O2SAT 93
[2021-06-03 06:57] LABS: Absolute Lymphocyte Count 1.79 X10^3/uL (0.83-4.51); Absolute Neutrophil Count 6.2 X10^3/uL (2.0-7.7); Basophil# 0.02 X10^3/uL; Basophil% 0.2 % (0-1); Eosinophil# 0.01 X10^3/uL; Eosinophils% 0.1 % (0-5); Hematocrit 41.2 % (37-47); Hemoglobin 13.2 g/dL (12.0-15.0); Lymphocyte # 1.79 X10^3/ul (0.83-4.51); Mean Corpuscular Hgb 29.1 pg (27.0-32.0); Mean Corpuscular Volume 90.7 fL (81-99); Mean Platelet Vol. 9.4 fl (6.2-12.0); Monocyte# 0.85 X10^3/uL; Monocyte% 9.5 % (0-10); NRBC Flagged by Analyzer 0 % (0-5); Neutrophil # 6.19 X10^3/uL (2.7-7.7); POSITIVE MORPHOLOGY YES; Platelet Count 393 K/mm3 (150-450); RBC Distribution Width CV 12.2 % (11.6-14.6); RBC Distribution Width SD 40.6 fl (35.1-43.9); Red Blood Count 4.54 M/mm3 (4.2-5.4)
[2021-06-03 07:15] LABS: Anion Gap 6 (5-15); BUN 10 mg/dL (7-18); BUN/Creat Ratio 14.9 RATIO (10-20); Calcium,Total 8.8 mg/dL (8.5-10.1); Chloride 104 mmol/L (98-107); Creatinine, Serum 0.67 mg/dL (0.55-1.02); EST Glomerular Filtration Rate 101 mL/min (>60); Est Glom Filt Rate - Afr Amer 122 mL/min (>60); Estimated Creatinine Clearance 102.03 ml/min; Glucose 95 mg/dL (74-106); Sodium Level 140 mmol/L (136-145)
[2021-06-03 07:33] LABS: Differential Indicated SCAN CRITERIA MET
[2021-06-03 08:17] VITALS: BP 137/85; PULSE 72; RESP 18; TEMP 36.6; O2SAT 93
[2021-06-03 08:18] VITALS: RESP 18
[2021-06-03 08:49] LABS: Atypical Lymphocyte RARE %
[2021-06-03] MEDS: Ascorbic Acid 500 MG Tablet PO (09:40)
[2021-06-03] MEDS: dexAMETHasone 2 MG TABLET 6 MG PO (09:40)
[2021-06-03] MEDS: Famotidine 20 MG Tablet PO ×2 (09:40→22:29)
[2021-06-03] MEDS: Cholecalciferol (VIT D3) 25 MCG TABLET (1,000 UNITS) 50 MCG PO (09:40)
[2021-06-03] MEDS: Enoxaparin 40 MG/0.4 ML Syringe SC ×2 (09:40→22:29)
[2021-06-03 09:46] VITALS: O2SAT 93
--- NOTE | 2021-06-03 10:51 | PN.HOSP_ITS ---
Subjective Subjective Patient seen and examined. She has no active complaints today and feels well. She is on 8 L of oxygen. Review of systems otherwise negative. Patient wanted to clarify her CODE STATUS today and said she would want CPR but would not want to be on ventilator, as she said her research on covid patients showed that very few of them came off [facility] ventilator. Objective Data Objective Data Vital Signs: Vital Signs Temp Pulse Resp BP Pulse Ox 97.8 F 72 18 137/85 H 93 06/03/21 08:17 06/03/21 08:17 06/03/21 08:18 06/03/21 08:17 06/03/21 09:46 Oxygen Flow Rate (L/min) 8 Oxygen Delivery Method Nasal Cannula Weight: 252 lb 3.341 oz Body Mass Index (BMI) 39.4 Intake & Output: Intake and Output for Last 24 Hours 06/01/21 06/02/21 06/03/21 23:59 23:59 23:59 Intake Total 600 / 600 Balance 600 / 600 Medical Nutrition Assessment Dietitian: Malnutrition Criteria Met Start: 05/30/21 15:39 Freq: Status: Active Protocol: Document 05/30/21 15:39 JANNETTE (Rec: 05/30/21 15:39 [facility] [id number]) Nutrition Malnutrition Evidence of Malnutrition Exists Yes Malnutrition (severe): Acute Illness/Injury Evidenced By Suboptimal Energy Intake ( Severe),Weight Loss (Severe) Clinical Problem Acute Disease or Injury Related Malnutrition Etiology related to acute illness and nausea/diarrhea so unable to meet est nutritional needs Signs/Symptoms as evidenced by <75% po intake and 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 Recommendation Dietitian Recommendations/Changes Continue liberal regular diet Provide oral nutritional supplements if pt requests Lab / Micro Data Result Diagrams: 06/03/21 06:41 06/03/21 06:41 Labs: Laboratory Results - last 24 hr 06/03/21 06:41: WBC 9.0, RBC 4.54, Hgb 13.2, Hct 41.2, MCV 90.7, MCH 29.1, MCHC 32.0, RDW Std Deviation 40.6, RDW Coeff of Dante 12.2, Plt Count 393, MPV 9.4, Immature Gran % (Auto) 1.200 H, Neut % (Auto) 69.0, Lymph % (Auto) 20.0, [place] % (Auto) 9.5, Eos % (Auto) 0.1, Baso % (Auto) 0.2, Absolute Neuts (auto) 6.2, Absolute Lymphs (auto) 1.79, Nucleated RBC % 0, Atypical Lymphocytes RARE 06/03/21 06:41: Sodium 140, Potassium 4.0, Chloride 104, Carbon Dioxide 30.0, A nion Gap 6, BUN 10, Creatinine 0.67, Estim Creat Clear Calc 102.03, Est GFR (MDRD) Af Amer 122, Est GFR (MDRD) Non-Af 101, BUN/Creatinine Ratio 14.9, Glucose 95, Calcium 8.8 Micro: Microbiology 05/30/21 17:42 Sputum, Expectorated/Coughed Gram Stain - Final 05/30/21 17:42 Sputum, Expectorated/Coughed Respiratory Culture - Final 05/30/21 01:10 Blood Culture (Wb) - Anticubital Left Blood Culture - Preliminary No growth in 48 hours. 05/30/21 00:50 Blood Culture (Wb) - Anticubital Right Blood Culture - Preliminary No growth in 48 hours. 05/30/21 08:30 Urine, Clean Catch Legionella Antigen - Final 05/30/21 08:30 Urine, Clean Catch Streptococcus pneumoniae Antigen (M - Final 05/30/21 00:45 Nasal Secretion SARS-CoV-2 Antigen (Rapid) - Final Physical Exam Const alert, oriented x3, no apparent distress and well nourished General Appearance: cooperative Exam Limitations: no limitations HEENT normocephalic, head/scalp atraumatic, hearing grossly normal bilaterally and moist oral mucous membranes Head and Scalp: normocephalic Eyes PERRL, EOMs intact bilaterally and conjunctivae normal Neck no lymphadenopathy, supple, no JVD and no carotid bruits Resp normal respiratory effort, no retractions and no use of accessory muscles Resp Narrative: diminished breath sounds bibasally, no wheezes or crackles. Still on 8L of oxygen by nasal canula Auscultation: wheezes Cardio regular rate, regular rhythm, S1 normal heart sound, S2 normal heart sound, no murmurs, no rub and no JVD GI normal to inspection, nondistended, normoactive bowel sounds, soft to palpation, non-tender and non-distended; Negative for hepatosplenomegaly Extremity normal to inspection, full ROM and no clubbing, cyanosis or edema Peripheral Pulses: Yes pulses 2+ throughout Skin no rashes or lesions noted, no wounds, skin turgor normal, no jaundice, no petechiae and no mottling Neuro oriented x3, CN's II-XII intact bilaterally, moves all extremities and no focal motor deficits Sensorium / Orientation: awake and alert Speech: speech normal Motor Exam: strength 5/5 throughout Psych affect normal Assessment & Plan Assessment/Plan (1) Acute respiratory failure with hypoxia: (2) D-dimer, elevated: (3) Pneumonia due to COVID-19 virus: (4) Hyponatremia: PLAN: #Acute hypoxic respiratory failure due to covid 19 pneumonia * on decadron. Patient doesnt want remdesivir and also says she doesnt want baricitinib. * now on 8L of oxygen * SYmptoms started on 05/21/2021. To remain in isolation till Jun 10, 2020. * titrate oxygen to maintain sats >90% * urine for strep and legionella were negative. * respiratory culture appears to be normal respiratory nela, and gram statin showed 4+ wbc and 2+ gram positive cocci. * sputum culture grows mixed normal respiratory nela. * on levaquin * #Elevated D dimer * Due to Covid. CT of the chest was negative. * #Hyponatremia: resolved. #Morbid obesity: BMI is 39.5. Complicates acute care, expected recovery and prognosis. DVT prophylaxis: Lovenox 40 mg twice daily CODE STATUS: * Patient again clarified today that she would like She would like CPR, but no intubation. * She stated that she didnt want to be a do not resuscitate. Charges/Coding Visit Charges Inpatient E&M: 74694 Subs Hosp L2
[2021-06-03 14:19] VITALS: BP 129/81; PULSE 78; RESP 18; TEMP 36.6; O2SAT 95
[2021-06-03] MEDS: MELATONIN 10 MG TABLET PO (22:29)
[2021-06-03] MEDS: guaiFENesin 10 ML UDC (200MG/10ML) 20 ML PO (22:29)
[2021-06-03] MEDS: Acetaminophen 325 MG Tablet 650 MG PO (22:30)
[2021-06-03 22:42] VITALS: BP 133/93; PULSE 78; RESP 20; TEMP 36.8; O2SAT 98
[2021-06-04] VITALS (8 sets, daily range): BP systolic 122–130; BP diastolic 77–86; PULSE 60–83; RESP 18–20; TEMP 36.3–37.2; O2SAT 86–96
[2021-06-04 06:54] LABS: Absolute Lymphocyte Count 2.06 X10^3/uL (0.83-4.51); Absolute Neutrophil Count 7.1 X10^3/uL (2.0-7.7); Basophil# 0.03 X10^3/uL; Basophil% 0.3 % (0-1); Eosinophil# 0.02 X10^3/uL; Eosinophils% 0.2 % (0-5); Hematocrit 41.7 % (37-47); Hemoglobin 13.2 g/dL (12.0-15.0); Lymphocyte # 2.06 X10^3/ul (0.83-4.51); Mean Corp Hgb Conc 31.7 g/dL (32-36); Mean Corpuscular Hgb 28.4 pg (27.0-32.0); Mean Corpuscular Volume 89.7 fL (81-99); Mean Platelet Vol. 9.4 fl (6.2-12.0); Monocyte% 8.7 % (0-10); NRBC Flagged by Analyzer 0 % (0-5); Neutrophil # 7.11 X10^3/uL (2.7-7.7); Neutrophil % 69.1 % (47-70); Platelet Count 418 K/mm3 (150-450); RBC Distribution Width CV 12.2 % (11.6-14.6); RBC Distribution Width SD 40.2 fl (35.1-43.9); Red Blood Count 4.65 M/mm3 (4.2-5.4); White Blood Count 10.3 K/mm3 (4.4-11.0)
[2021-06-04 07:11] LABS: Anion Gap 5 (5-15); BUN 9 mg/dL (7-18); BUN/Creat Ratio 11.9 RATIO (10-20); Chloride 105 mmol/L (98-107); Creatinine, Serum 0.76 mg/dL (0.55-1.02); EST Glomerular Filtration Rate 88 mL/min (>60); Est Glom Filt Rate - Afr Amer 106 mL/min (>60); Estimated Creatinine Clearance 89.95 ml/min; Glucose 90 mg/dL (74-106); Sodium Level 139 mmol/L (136-145)
[2021-06-04] MEDS: dexAMETHasone 2 MG TABLET 6 MG PO (10:07)
[2021-06-04] MEDS: Enoxaparin 40 MG/0.4 ML Syringe SC ×2 (10:07→22:50)
[2021-06-04] MEDS: Famotidine 20 MG Tablet PO ×2 (10:07→22:50)
[2021-06-04] MEDS: Ascorbic Acid 500 MG Tablet PO (10:08)
[2021-06-04] MEDS: Cholecalciferol (VIT D3) 25 MCG TABLET (1,000 UNITS) 50 MCG PO (10:08)
[2021-06-04] MEDS: Ipratropium/Albuterol Sulfate 3 ML AMPUL.NEB INHALATION (15:05)
--- NOTE | 2021-06-04 16:29 | PN.HOSP_ITS ---
Subjective Subjective Follow-up on acute hypoxic respiratory failure secondary to acute COVID-19 pneumonia: Patient was seen and examined. She is currently on 4 L of oxygen. No acute events. Feels improved. Objective Data Objective Data Vital Signs: Vital Signs Temp Pulse Resp BP Pulse Ox 97.9 F 83 20 H 125/77 H 95 06/04/21 10:00 06/04/21 15:05 06/04/21 15:05 06/04/21 10:00 06/04/21 10:00 Oxygen Flow Rate (L/min) 4 Oxygen Delivery Method High Flow Weight: 114.4 kg Body Mass Index (BMI) 39.4 Medical Nutrition Assessment Dietitian: Malnutrition Criteria Met Start: 05/30/21 15:39 Freq: Status: Active Protocol: Document 05/30/21 15:39 SLA (Rec: 05/30/21 15:39 SLA [id number]) Nutrition Malnutrition Evidence of Malnutrition Exists Yes Malnutrition (severe): Acute Illness/Injury Evidenced By Suboptimal Energy Intake ( Severe),Weight Loss (Severe) Clinical Problem Acute Disease or Injury Related Malnutrition Etiology related to acute illness and nausea/diarrhea so unable to meet est nutritional needs Signs/Symptoms as evidenced by <75% po intake and 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 Dietitian Recommendations/Changes Continue liberal regular diet Provide oral nutritional supplements if pt requests Lab / Micro Data Result Diagrams: 06/04/21 06:00 06/04/21 06:00 Labs: Laboratory Results - last 24 hr 06/04/21 06:00: WBC 10.3, RBC 4.65, Hgb 13.2, Hct 41.7, MCV 89.7, MCH 28.4, MCHC 31.7 L, RDW Std Deviation 40.2, RDW Coeff of Dante 12.2, Plt Count 418, MPV 9.4, Immature Gran % (Auto) 1.700 H, Neut % (Auto) 69.1, Lymph % (Auto) 20.0, [place] % (Auto) 8.7, Eos % (Auto) 0.2, Baso % (Auto) 0.3, Absolute Neuts (auto) 7.1, Absolute Lymphs (auto) 2.06, Nucleated RBC % 0 06/04/21 06:00: Sodium 139, Potassium 4.0, Chloride 105, Carbon Dioxide 29.0, Anion Gap 5, BUN 9, Creatinine 0.76, Estim Creat Clear Calc 89.95, Est GFR (MDRD) Af Amer 106, Est GFR (MDRD) Non-Af 88, BUN/Creatinine Ratio 11.9, Glucose 90, Calcium 9.0 Micro: Microbiology 05/30/21 00:50 Blood Culture (Wb) - Anticubital Right Blood Culture - Final No growth in 5 days. 05/30/21 01:10 Blood Culture (Wb) - Anticubital Left Blood Culture - Final No growth in 5 days. 05/30/21 17:42 Sputum, Expectorated/Coughed Gram Stain - Final 05/30/21 17:42 Sputum, Expectorated/Coughed Respiratory Culture - Final 05/30/21 08:30 Urine, Clean Catch Legionella Antigen - Final 05/30/21 08:30 Urine, Clean Catch Streptococcus pneumoniae Antigen (M - Final 05/30/21 00:45 Nasal Secretion SARS-CoV-2 Antigen (Rapid) - Final Physical Exam Narrative Physical exam: General: Alert, Oriented x3, Cooperative, No apparent distress, on 4 L of oxygen HEENT: Atraumatic Oral: Moist Mucosa Neck: Suppl Resp: Diminished to auscultation Cardiovascular: HS I+II, regular, no murmurs Abdomen: Bowel Sounds Present, Soft, Non Tender Extremities: No edema Assessment & Plan Assessment/Plan (1) Acute respiratory failure with hypoxia: (2) D-dimer, elevated: (3) Pneumonia due to COVID-19 virus: (4) Hyponatremia: PLAN: 1. Acute hypoxic respiratory failure secondary to acute COVID-19 pneumonia, improving Patient is currently on 4 L of oxygen Urine Legionella and strep coccal antigen are negative. Sputum culture shows mixed normal respiratory nela Continue on dexamethasone Patient did not want remdesivir 2. Elevated D dimer, CTA of chest is negative 3. Hyponatremia, resolved. 4. Morbid obesity, BMI is 39.5, lifestyle modification recommended 5. DVT prophylaxis: Lovenox 40 mg twice daily Charges/Coding Visit Charges Inpatient E&M: 45698 Subs Hosp L2
[2021-06-04] MEDS: guaiFENesin 10 ML UDC (200MG/10ML) 20 ML PO ×2 (18:13→22:50)
[2021-06-04] MEDS: Acetaminophen 325 MG Tablet 650 MG PO (18:19)
[2021-06-04] MEDS: MELATONIN 10 MG TABLET PO (23:05)
[2021-06-05] VITALS (8 sets, daily range): BP systolic 115–118; BP diastolic 71–84; PULSE 46–89; RESP 18–22; TEMP 36.6; O2SAT 87–99
[2021-06-05] MEDS: Acetaminophen 325 MG Tablet 650 MG PO ×2 (04:27→10:23)
[2021-06-05] MEDS: guaiFENesin 10 ML UDC (200MG/10ML) 20 ML PO ×2 (04:28→10:23)
[2021-06-05] MEDS: Enoxaparin 40 MG/0.4 ML Syringe SC (09:33)
[2021-06-05] MEDS: Famotidine 20 MG Tablet PO (09:33)
[2021-06-05] MEDS: dexAMETHasone 2 MG TABLET 6 MG PO (09:33)
[2021-06-05] MEDS: Cholecalciferol (VIT D3) 25 MCG TABLET (1,000 UNITS) 50 MCG PO (09:33)
[2021-06-05] MEDS: Ascorbic Acid 500 MG Tablet PO (10:20)
--- NOTE | 2021-06-05 12:34 | DS.PCM_ITS ---
Providers Date of Admission: 05/30/21 Date of Discharge: 06/05/21 Primary Care Physician: No Primary Care Phys Reason For Visit: ACUTE HYPOXIC RESP FAILURE 2NDARY TO COVID 19 PNEU Diagnosis Discharge Diagnosis (1) Acute respiratory failure with hypoxia: Status: Acute Code(s): J96.01 - Acute respiratory failure with hypoxia (2) D-dimer, elevated: Status: Acute Code(s): R79.89 - Other specified abnormal findings of blood chemistry (3) Pneumonia due to COVID-19 virus: Status: Acute Code(s): U07.1 - COVID-19; J12.82 - Pneumonia due to coronavirus disease 2019 (4) Hyponatremia: Status: Acute Code(s): E87.1 - Hypo-osmolality and hyponatremia (5) Severe protein-calorie malnutrition: Status: Acute Code(s): E43 - Unspecified severe protein-calorie malnutrition Medications at Discharge Home Medications norgestimate-ethinyl estradiol 1 tab PO DAILY 01/18/19 ascorbate [id number] 1 tab PO DAILY 05/28/21 ascorbic acid (vitamin C) [Vitamin C] 500 mg PO DAILY 05/28/21 cholecalciferol (vitamin D3) [Vitamin D3] 50 mcg PO DAILY 05/28/21 ondansetron 8 mg PO Q8H PRN PRN #12 tab 05/28/21 albuterol sulfate 05/30/21 budesonide mg 05/30/21 montelukast 10 mg PO DAILY 05/30/21 aspirin [Aspirin Childrens] 81 mg PO DAILY 30 Days #30 tab 06/05/21 dexamethasone 6 mg PO DAILY 3 Days #9 tab 06/05/21 Hospital Course Operations None Procedures None Summary of Care Provided Minutes Spent on Discharge: 45 Hospital Course: 46-year-old female who presented with shortness of breath, nausea, diarrhea. Patient was diagnosed with acute COVID-19 pneumonia. She is unvaccinated. She was found to be saturating 80% on room air. This improved to 5 and half liters of oxygen via nasal cannula. D-dimer was elevated at admission at 0.69. CTA of the chest was negative for acute PE. Patient also had hyponatremia. She was admitted to the [facility] floor and started on dexamethasone. Patient declined Remdesivir. Patient gradually improved and qualified for home oxygen. She was discharged home on 2 L of oxygen. Physical Exam Narrative Physical exam: General: Alert, Oriented x3, Cooperative, No apparent distress, on 2 L of oxygen HEENT: Atraumatic Oral: Moist Mucosa Neck: Suppl Resp: Diminished to auscultation Cardiovascular: HS I+II, regular, no murmurs Abdomen: Bowel Sounds Present, Soft, Non Tender Extremities: No edema Medical Records Data Medical Nutrition Assessment Dietitian: Malnutrition Criteria Met Start: 05/30/21 15:39 Freq: Status: Active Protocol: Document 05/30/21 15:39 SLA (Rec: 05/30/21 15:39 [facility] [id number]) Nutrition Malnutrition Evidence of Malnutrition Exists Yes Malnutrition (severe): Acute Illness/Injury Evidenced By Suboptimal Energy Intake ( Severe),Weight Loss (Severe) Clinical Problem Acute Disease or Injury Related Malnutrition Etiology related to acute illness and nausea/diarrhea so unable to meet est nutritional needs Signs/Symptoms as evidenced by <75% po intake and 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 05/30/21 01:10 Blood Culture (Wb) - Anticubital Left Blood Culture - Final No growth in 5 days. 05/30/21 17:42 Sputum, Expectorated/Coughed Gram Stain - Final 05/30/21 17:42 Sputum, Expectorated/Coughed Respiratory Culture - Final 05/30/21 08:30 Urine, Clean Catch Legionella Antigen - Final 05/30/21 08:30 Urine, Clean Catch Streptococcus pneumoniae Antigen (M - Final 05/30/21 00:45 Nasal Secretion SARS-CoV-2 Antigen (Rapid) - Final D/C Instructions Discharge Diet: No restrictions Meaningful Use Info Meaningful Use Diagnoses (Choose all that apply): None applicable Discharge Plan Admission Admit Date/Time: 05/30/21 04:09 Primary Reason for Your Visit: Acute hypoxic respiratory failure/Acute COVID-19 pneumonia Attending Provider: Misty Davis Primary Care Provider: Care Physician,Dorothy Primary Instructions Additional Instructions / Restrictions: You are being discharged with oxygen. Continue to use your oxygen all the time. Continue to use your incentive spirometer. Continue to remain active and eat healthy. Let your doctor know if you develop fever >101.3F or have progressive worsening shortness of breath. Follow-up with your primary care doctor to have your continued oxygen use reevaluated. Be careful of going near open flames whilst on oxygen. Complete your Decadron as prescribed. Continue to use your inhaler as needed for shortness of breath. Continue to quarantine for 20 days total from the start of your symptoms. Discharge Orders/Prescriptions Prescriptions: New dexamethasone 2 mg Tablet 6 mg PO DAILY 3 Days Qty: 9 RF: 0 aspirin [Aspirin Childrens] 81 mg tablet,chewable 81 mg PO DAILY 30 Days Qty: 30 RF: 0 Continued norgestimate-ethinyl estradiol 0 tablet 1 tab PO DAILY RF: 0 ascorbic acid (vitamin C) [Vitamin C] 500 mg Capsule, Extended Release 500 mg PO DAILY RF: 0 cholecalciferol (vitamin D3) [Vitamin D3] 50 mcg (2,000 unit) Tablet 50 mcg PO DAILY RF: 0 ascorbate [id number] 100-100-50 mg Tablet 1 tab PO DAILY RF: 0 ondansetron 4 MG tablet 8 mg PO Q8H PRN PRN (Reason: Nausea) Qty: 12 RF: 0 albuterol sulfate 2.5 mg /3 mL (0.083 %) solution for nebulization RF: 0 budesonide 0.5 mg/2 mL suspension for nebulization RF: 0 montelukast 10 mg tablet 10 mg PO DAILY RF: 0 Discontinued ivermectin 6 mg Tablet 12 mg PO BID RF: 0 Referrals / Follow Up: Care Physician,No Primary [Primary Care Provider] - Within 2 Weeks Disposition Disposition (needs filled in before D/C Order can be placed): Home, Self Care Charges/Coding Visit Charges Inpatient E&M: 38031 Disch Hosp
--- NOTE | 2021-06-05 14:51 | CASEMGMT ---
Pt qualifies for home O2, faxed referral to [facility]. Emailed [facility] to make aware of referral and portable tank taken from stock.
== END 2021-06-05 16:02 | disposition home or self-care (01) | DRG 177 ==
LOC: ED 05-30 03:44 → MS3 05-30 04:22
PROVIDERS: Student in an Organized Health Care Education/Training Program; Admitting Provider Internal Medicine; Emergency Provider Emergency Medicine; Visit Provider Internal Medicine
DX: U07.1 COVID-19 (principal); J12.82 Pneumonia due to coronavirus disease 2019; J96.01 Acute respiratory failure with hypoxia; E43 Unspecified severe protein-calorie malnutrition; E87.1 Hypo-osmolality and hyponatremia; Z66 Do not resuscitate; Z68.39 Body mass index [BMI] 39.0-39.9, adult; E66.01 Morbid (severe) obesity due to excess calories; E55.9 Vitamin D deficiency, unspecified; R79.89 Other specified abnormal findings of blood chemistry
CPT/HCPCS: 36415; 71045; 71275; 80048; 80053; 83605; 83735; 84100; 84145; 84484; 85025; 85379; 87040; 87070; 87205; 87426; 87449; 93005; 94640; 94667; 94668; 94762; 99285; J7030; Q9967; A4216

== ENCOUNTER 2021-06-22 20:14 | Emergency (ER) | payer BC, SELFPAY ==
[2021-06-22 20:14] VITALS: PULSE 101; RESP 20; TEMP 36.2; O2SAT 95; BMI 38.3
--- NOTE | 2021-06-22 20:48 | EX.ED.DYSGE1 ---
HPI History of Present Illness Chief Complaint: Nosebleed Informant: patient Onset/Context/Timing Onset: Today Context: Sudden Onset Timing: Continuous Quality: Blood Location: Bilateral nares, left greater than right Worsened by: Nothing Relieved by: Nothing Narrative Narrative: Patient presents with epistaxis that began today. Patient states it has been constant for the past hour and 15 minutes. Patient states it is coming out of both nares. Patient states she was recently hospitalized for COVID and was placed on oxygen. Patient states that when she was discharged home on oxygen she was not given a humidifier. Patient states that she started having some nosebleeds while she was in the hospital. Patient states she has been having some dried blood on her nares. Patient states that it started bleeding again today. Patient states she had an episode earlier today that resolved on its own. [facility] Medical History delivery delivered Home Medications norgestimate-ethinyl estradiol 1 tab PO DAILY 01/18/19 [History Last Taken 05/21/21] ascorbate [id number]-[id number] 1 tab PO DAILY 05/28/21 [History Last Taken 05/29/21] ascorbic acid (vitamin C) [Vitamin C] 500 mg PO DAILY 05/28/21 [History Last Taken 05/29/21] cholecalciferol (vitamin D3) [Vitamin D3] 50 mcg PO DAILY 05/28/21 [History Last Taken 05/29/21] ondansetron 8 mg PO Q8H PRN PRN #12 tab 05/28/21 [Rx Last Taken Unknown] albuterol sulfate 05/30/21 [History Last Taken Unknown] budesonide mg 05/30/21 [History Last Taken Unknown] montelukast 10 mg PO DAILY 05/30/21 [History Last Taken 05/29/21] aspirin [Aspirin Childrens] 81 mg PO DAILY 30 Days #30 tab 06/05/21 [Rx Last Taken Unknown] dexamethasone 6 mg PO DAILY 3 Days #9 tab 06/05/21 [Rx Last Taken Unknown] Allergy/AdvReac Type Severity Reaction Status Date / Time codeine Allergy Rash Verified 03/22/19 07:55 Surgical History H/O laminectomy Hx of tonsillectomy Social History Smoking Status: Never smoker ROS ROS ED Constitutional Constitutional ED: Denies chills or fever(s) Eyes Eyes: Denies blurry vision or change in vision ENT ENT ED: Denies rhinorrhea or sore throat Cardiovascular Cardiovascular: Denies chest pain or palpitations Respiratory/Chest Respiratory/Chest: Reports cough and sputum; Denies dyspnea Gastrointestinal Gastrointestinal: Denies nausea or vomiting Genitourinary Genitourinary ED: Denies dysuria or hematuria Musculoskeletal Musculoskeletal: Denies back pain or neck pain Integumentary Denies abscess or rash Neurologic Neurologic: Reports headache(s); Denies weakness Allergic/Immunologic Allergic/Immunologic ED: Denies mouth swelling or urticaria EXAM Physical Exam Const Vital Signs: 06/22/21 20:14 Temperature 97.2 F L Temperature Source Temporal Pulse Rate 101 H Respiratory Rate 20 H Pulse Ox 95 Oxygen Delivery Method Room Air Positive well nourished, well developed and obese General Appearance ED: well developed Nutritional Appearance: obese HEENT Reports moist mucous membranes HEENT Narrative: There is dried blood in the left nares. There is no active bleeding noted. There is no bleeding noted in the right nares. There is no septal deviation or septal hematoma. Oropharynx is clear. Neck supple and no JVD Neuro oriented x3, CN's II-XII intact bilaterally and no sensory deficits noted Sensorium / Orientation: alert Motor Exam: strength 5/5 throughout Psych mental status grossly normal MDM MDM MDM Narrative Medical decision making narrative: Since there is no active bleeding at this time, patient will be observed in the emergency department for further bleeding. There is no further bleeding noted. Bacitracin ointment was applied to the nares bilaterally. Patient was advised to only use her oxygen as needed. Patient states she only gets hypoxic whenever she gets up to walk. Patient was advised to take her oxygen off while she is sitting and resting. Patient was instructed to use Neosporin or bacitracin ointment to the nares bilaterally daily. Patient was instructed to follow-up with her primary care physician in 5 to 7 days. Patient was instructed to return if worse in any way. Patient understood and was agreeable with the plan. All questions were answered. Discharge Plan Triage Chief Complaint: Nosebleed ED Provider: Giorgi Santos Dx/Rx/DC Orders Clinical Impression: Epistaxis Instructions: ED Epistaxis (Adult) Prescriptions: No Action norgestimate-ethinyl estradiol 0 tablet 1 tab PO DAILY RF: 0 ascorbic acid (vitamin C) [Vitamin C] 500 mg Capsule, Extended Release 500 mg PO DAILY RF: 0 cholecalciferol (vitamin D3) [Vitamin D3] 50 mcg (2,000 unit) Tablet 50 mcg PO DAILY RF: 0 ascorbate [id number]-[id number] 100-100-50 mg Tablet 1 tab PO DAILY RF: 0 ondansetron 4 MG tablet 8 mg PO Q8H PRN PRN (Reason: Nausea) Qty: 12 RF: 0 albuterol sulfate 2.5 mg /3 mL (0.083 %) solution for nebulization RF: 0 budesonide 0.5 mg/2 mL suspension for nebulization RF: 0 montelukast 10 mg tablet 10 mg PO DAILY RF: 0 dexamethasone 2 mg Tablet 6 mg PO DAILY 3 Days Qty: 9 RF: 0 aspirin [Aspirin Childrens] 81 mg tablet,chewable 81 mg PO DAILY 30 Days Qty: 30 RF: 0 Primary Care Provider: Emilee Martinez NP Referrals: Emilee Martinez NP, [facility] [Primary Care Provider] - 5-7 Days Disposition Disposition: Home, Self Care
== END 2021-06-22 21:41 | disposition home or self-care (01) ==
PROVIDERS: Emergency Provider Emergency Medicine; PCP Nurse Practitioner Family; Visit Provider Emergency Medicine
DX: R04.0 Epistaxis (principal); E66.9 Obesity, unspecified; Z68.38 Body mass index [BMI] 38.0-38.9, adult; Z86.16 Personal history of COVID-19
CPT/HCPCS: 99282

== ENCOUNTER 2021-07-02 15:13 | Outpatient (CLI) | payer BC, SELFPAY ==
--- NOTE | 2021-07-02 15:20 | RAD_ITS ---
STUDY: X-RAY CHEST REASON FOR EXAM: Female, 46 years old. Fever and cough TECHNIQUE: PA and lateral views of the chest. COMPARISON: 05/30/2021 FINDINGS: Lungs are expanded. Overall improvement is noted since the previous study with decreased interstitial and airspace opacifications in both lung [place]. Continued follow-up recommended to show complete resolution. Normal size heart. Normal mediastinum and nikole. Normal visualized pulmonary arteries. Normal visualized aortic arch and descending thoracic aorta. Normal visualized thoracic spine. Normal visualized ribs, clavicles, and shoulders. There is no demonstrated abnormality of the visualized soft tissue structures of the upper abdomen. RAD/Chest PA and Lateral IMPRESSION: Resolving interstitial and airspace opacifications in both lung florence since the previous study. Continued follow-up recommended to show complete resolution Electronically Signed: Miguel Angel Do MD at 15:35 EST ,
== END 2021-07-02 23:59 | disposition short-term general hospital (02) ==
LOC: RAD 15:16
PROVIDERS: PCP Nurse Practitioner Family; Referring Provider Nurse Practitioner Family; Visit Provider Nurse Practitioner Family
DX: R05.9 Cough, unspecified (principal); Z86.16 Personal history of COVID-19; Z87.01 Personal history of pneumonia (recurrent)
CPT/HCPCS: 71046

== ENCOUNTER 2022-04-17 16:36 | Outpatient (CLI) | payer BC, SELFPAY ==
--- NOTE | 2022-04-17 16:41 | RAD_ITS ---
STUDY: X-RAY CHEST REASON FOR EXAM: Female, 47 years old. COUGH/URI TECHNIQUE: PA and lateral COMPARISON: 07/02/2021 FINDINGS: Mild prominence of the interstitial markings in the lower lobes.. There is no demonstrated pleural abnormality. Normal size heart. Normal mediastinum and nikole. Normal visualized pulmonary arteries. Normal visualized aortic arch and descending thoracic aorta. Normal visualized thoracic spine. Normal visualized ribs, clavicles, and shoulders. There is no demonstrated abnormality of the visualized soft tissue structures of the upper abdomen. There is improved aeration in the lower lobes since previous exam. RAD/Chest PA and Lateral IMPRESSION: Mild bibasilar interstitial thickening improved since previous exam.. No acute cardiopulmonary pathology Electronically Signed: Sandro Caballero MD at 18:03 EST ,
== END 2022-04-17 23:59 | disposition home or self-care (01) ==
LOC: RAD 16:38
PROVIDERS: PCP Nurse Practitioner Family; Referring Provider Nurse Practitioner Family; Visit Provider Nurse Practitioner Family
DX: J06.9 Acute upper respiratory infection, unspecified (principal)
CPT/HCPCS: 71046